=== PATIENT | female | born 1945 | race Caucasian/White ===

== ENCOUNTER → 2016-08-05 | Outpatient (CLI) | payer OTHER, MEDICARE ==
[~2016-08-05] MED LIST: ATOR-54 PO; CALC1TAB10 PO; COQ10100 PO; FISHOIL PO; LISI20TA3 PO; LISI20TA55 PO; MAGN1CAP2 PO; MULT-506 PO; NORT50CA PO; POLY335019 PO; POTA99TA PO; PRLSR20 PO; TRAZ100T29 PO
== END | disposition home or self-care (01) ==
LOC: C.LAB 10:55
PROVIDERS: ATTEND Internal Medicine Geriatric Medicine
DX: Z11.59 Encounter for screening for other viral diseases (principal)

== ENCOUNTER → 2017-02-08 | Outpatient (CLI) | payer OTHER, MEDICARE ==
[2017-02-08 12:40] LABS: BASO % 0.2 %; BASO ABS # 0.03 K/uL (0-0.2); COMPLETE YES; EOS % 4.3 %; HEMATOCRIT 41.6 % (37-47); IG% 0.2 %; LYMPH % 8.5 %; LYMPH ABS # 1.08 K/uL (1.2-3.4); MEAN CELL VOLUME 89.5 fL (80-100); MEAN CORPUSCULAR HEMOGLOBIN 31.4 pg (25-34); MEAN CORPUSCULAR HGB CONC 35.1 g/dl (32-36); MEAN PLATELET VOLUME 10.5 fL (7.4-10.4); MONO % 5.1 %; NEUT % 81.7 %; PLATELET COUNT 308 K/uL (130-400); RED BLOOD COUNT 4.65 M/uL (4.2-5.4); WHITE BLOOD COUNT 12.67 K/uL (4.8-10.8)
[2017-02-08 13:06] LABS: ALB/GLOB RATIO 1.1 (0.9-2); ALKALINE PHOSPHATASE 120 U/L (45-117); ALT/SGPT 47 U/L (12-78); AST/SGOT 25 U/L (15-37); BLOOD UREA NITROGEN 15 mg/dl (7-18); BUN/CREATININE RATIO 19.7 (10-20); CALCIUM 9.1 mg/dl (8.5-10.1); CARBON DIOXIDE 27 mmol/L (21-32); CHLORIDE 102 mmol/L (98-107); CREATININE 0.75 mg/dl (0.60-1.20); GLUCOSE 104 mg/dl (70-99); HDL CHOLESTEROL 46 mg/dl; POTASSIUM 3.8 mmol/L (3.5-5.1); SODIUM 137 mmol/L (136-145)
[2017-02-08 13:19] LABS: CHOLESTEROL 144 mg/dl (0-200); CHOLESTEROL/HDL RATIO 3.1; LDL CHOLESTEROL CALCULATED 76 mg/dl; TRIGLYCERIDES 108 mg/dl (0-150); VERY LOW DENSITY LIPOPROT CALC 22 mg/dl
--- NOTE | 2017-02-12 13:37 | CODING QUERY MEDICAL NECESSITY ---
SUPPORTING DIAGNOSIS NEEDED Dr. Rojas, A supporting diagnosis is required for the test/procedure performed on this patient in order for us to be reimbursed by the patient's insurance. Please provide a supporting diagnosis for the following test/procedure listed below next to the test name along with your signature. *If there is no additional diagnosis for this patient that would support the following test/procedure please document that below next to the test/procedure. Test(s)/Procedure(s) that require a supporting diagnosis: * ([id number]) VITAMIN D ASSAY DIAGNOSIS: DATE OF SERVICE: 02/08/17 Provider Signature: Date: Thank you Rosendo Quiroz [facility] Information Management Once completed, please kindly fax back to [phone] For questions please call [phone]
== END | disposition home or self-care (01) ==
LOC: C.LABBFT 08:02
PROVIDERS: ATTEND Internal Medicine Geriatric Medicine
DX: I10 Essential (primary) hypertension (principal); E78.5 Hyperlipidemia, unspecified; M19.90 Unspecified osteoarthritis, unspecified site; Z68.34 Body mass index [BMI] 34.0-34.9, adult

== ENCOUNTER → 2017-07-08 | Outpatient (CLI) | payer OTHER, MEDICARE ==
--- NOTE | 2017-07-08 13:46 | MAMMOGRAPHY REPORT ---
BILATERAL DIGITAL SCREENING MAMMOGRAM WITH CAD: 07/08/2017 CLINICAL HISTORY: Routine screening. Patient has no complaints. TECHNIQUE: Current study was also evaluated with a Computer Aided Detection (CAD) system. Bilateral CC and MLO views were obtained. COMPARISON: Comparison is made to exams dated: 07/03/2016 mammogram, 06/28/2015 mammogram, 4 mammogram, 06/26/2013 mammogram, 06/02/2011 mammogram, and 05/30/2010 mammogram - [facility]. BREAST COMPOSITION: There are scattered areas of fibroglandular density in both breasts. FINDINGS: No suspicious masses, calcifications, or areas of architectural distortion are noted in ei ther breast. There has been no significant interval change compared to prior exams. Scattered bilater al benign-appearing calcifications are not significantly changed. Left superior breast on the MLO vi ew is stable dating back to the 2007 exam. Benign intramammary lymph nodes in the right upper outer quadrant are stable. IMPRESSION: ACR BI-RADS CATEGORY 2: BENIGN There is no mammographic evidence of malignancy. A 1 year screening mammogram is recommended. The pa tient will receive written notification of the results. Approximately 10% of breast cancers are not detected with mammography. A negative mammographic report should not delay biopsy if a clinically suggestive mass is present. Claritza Molina M.D. /:07/08/2017 12:15:16 Warehouse Worker 2Nd Shift: Haydee Bonilla, [facility] letter sent: Normal 1/2 BI-RADS Code: ACR BI-RADS Category 2: Benign
== END | disposition home or self-care (01) ==
LOC: C.MAMM 10:44
PROVIDERS: ATTEND Internal Medicine Geriatric Medicine
DX: Z12.31 Encounter for screening mammogram for malignant neoplasm of breast (principal)

== ENCOUNTER → 2017-08-19 | Outpatient (CLI) | payer OTHER, MEDICARE ==
[2017-08-19 11:28] LABS: HEMOGLOBIN A1C 5.6 % (4.5-5.6)
[2017-08-19 14:35] LABS: ALT/SGPT 47 U/L (12-78); AST/SGOT 26 U/L (15-37); BLOOD UREA NITROGEN 17 mg/dl (7-18); CALCIUM 9.5 mg/dl (8.5-10.1); CARBON DIOXIDE 29 mmol/L (21-32); CREATININE 0.93 mg/dl (0.60-1.20); GLUCOSE 99 mg/dl (70-99); POTASSIUM 4.2 mmol/L (3.5-5.1); SODIUM 138 mmol/L (136-145)
[2017-08-19 14:38] LABS: ALKALINE PHOSPHATASE 118 U/L (45-117); TOTAL PROTEIN 7.7 gm/dl (6.4-8.2)
== END | disposition home or self-care (01) ==
LOC: C.LABBC 09:14
PROVIDERS: ATTEND Internal Medicine Geriatric Medicine
DX: I10 Essential (primary) hypertension (principal); E78.5 Hyperlipidemia, unspecified; M19.90 Unspecified osteoarthritis, unspecified site; M79.7 Fibromyalgia

== ENCOUNTER 2022-03-31 08:55 | Inpatient (IN) ==
[2022-03-31 09:12] LABS: Basophils # (auto) 0.06 K/uL (0-0.2); Basophils % (auto) 0.6 %; Eosinophils # (auto) 0.28 K/uL (0-0.50); Eosinophils % (auto) 2.7 %; Hematocrit (blood only) 43.1 % (34.1-44.9); Hemoglobin 14.7 g/dl (12.0-16.0); Immature Granulocytes # (auto) 0.03 K/uL (0.00-0.02); Immature Granulocytes % (auto) 0.3 %; Lymphocytes # (auto) 4.19 K/uL (1.2-3.4); Mean Corpuscular Hemoglobin 30.1 pg (25.0-34.0); Mean Corpuscular Hgb Conc 34.1 g/dL (32.0-36.0); Mean Corpuscular Volume 88.1 fL (80.0-100.0); Mean Platelet Volume 9.9 fL (9.4-12.3); Monocytes # (auto) 0.66 K/uL (0.24-0.82); Monocytes % (auto) 6.5 %; Neutrophils % (auto) 48.9 %; Platelet Count 366 K/uL (130-400); RDW Coefficient of Variation 13.3 % (11.5-14.5); RDW Standard Deviation 43.3 fL (36.4-46.3); Red Blood Count 4.89 M/uL (3.93-5.22); White Blood Count 10.22 K/ul (4.8-10.8)
--- NOTE | 2022-03-31 09:34 | Emergency Department Note ---
History of Present Illness General Chief complaint: Cardiac Assessment Time Seen by Provider: 03/31/22 09:03 Source: patient Mode of arrival: ambulatory Limitations: no limitations History of Present Illness Provider complaint: chest pain Onset (ago): week(s) 3 Location: chest Maximum Pain Intensity: 2 Treatments prior to arrival: none This is a 76-year-old female presents emergency department complaining of chest pain over the last 3 weeks. She states pain is intermittent, central, occasionally radiating into the neck. She states she has accompanying shortness of breath and numbness in her arms when this occurs. She denies any history of heart or lung problems. Denies any recent illness or fevers. No recent change in activity and no injuries. She cannot pinpoint a trigger or pattern to when these episodes occur. She states when they happen she will sit down and they will typically pass. She states slowly the episodes are lasting longer. She states both her parents required triple bypass on their 50s however that was attributed to diet. She states she has been on a statin for high cholesterol s robert she was 42 years old. Patient otherwise has a history of chronic neck pain due to prior surgery. Home Medications Medication Instructions Recorded Confirmed Type multivitamin 1 tab PO QAM ##0 06/04/09 03/31/22 History omeprazole 20 mg capsule,delayed 20 mg PO QAM ##0 06/04/09 03/31/22 History release polyethylene glycol 3350 17 1 dose PO QAM ##0 06/22/14 03/31/22 History gram/dose oral powder (Miralax) nortriptyline 50 mg capsule 50 mg PO HS #0 caps 11/19/15 03/31/22 History atorvastatin 20 mg tablet 20 mg PO QPM 03/15/18 03/31/22 History calcium carbonate 500 mg-vitamin 1 tab PO QAM 03/15/18 03/31/22 History D3 5 mcg (200 unit) tablet (Calcium 500 + D) coenzyme Q10 100 mg capsule 200 mg PO QAM 03/15/18 03/31/22 History (CoQ-10) lisinopril 20 mg tablet 20 mg PO QAM 03/15/18 03/31/22 History lisinopril 20 1 tab PO QAM 03/15/18 03/31/22 History mg-hydrochlorothiazide 25 mg tablet magnesium oxide 400 mg PO QAM 03/15/18 03/31/22 History omega 5-xfr-ecq-fish oil 1,000 mg 1 dose PO QAM 03/15/18 03/31/22 History (120 mg-180 mg) capsule (Fish Oil) tramadol 50 mg tablet 50 mg PO Q6H PRN pain #6 tabs 03/24/18 03/31/22 Rx cyclobenzaprine 10 mg tablet 10 mg PO HS 03/31/22 03/31/22 History Allergies Allergy/AdvReac Type Severity Reaction Status Date / Time oxycodone Allergy Intermediate Percocet,OX Verified 12/28/19 06:22 YCONTIN-HIV ES,RASH hydrocodone Allergy Unknown hives Verified 12/28/19 06:22 Iodinated Contrast Media Allergy Unknown HIVES, RASH Verified 12/28/19 06:22 nitrofurantoin Allergy Rash Verified 12/28/19 06:22 [From Macrobid] adhesive AdvReac Intermediate HIVES, Verified 12/28/19 06:22 BLISTERS Past Med/Surg History Medical History Chronic back pain Degenerative disc disease GERD (gastroesophageal reflux disease) Hyperlipidemia Hypertension Osteoarthritis Surgical History Fusion of spine 1996 L3-4 Fusion of spine FUSION OF C 5,6,7> ROM IS WNL PER PATIENT History of bilateral tubal ligation History of cataract surgery RIGHT History of colonoscopy History of hysterectomy GUTIERREZ W/ BSO History of repair of rotator cuff BILATERAL History of tonsillectomy History of total knee replacement BILATERAL Family History Mother Family history of diabetes mellitus Other No family history of adverse response to anesthesia Social History Smoking Status: Never smoker Second Hand Exposure: No; Hx Alcohol Use: No Hx Substance Use: No Preferred Language: Faroese Communication Ability: Effective 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 Beliefs That Will Affect Care: None Current Living Situation: Spouse Feels Safe at Home: Yes Assistive Devices: Cane, Denture - Upper and Glasses Review of Systems A total of 10 systems reviewed and were otherwise negative All systems reviewed & are unremarkable except as noted in HPI & below Physical Exam Vital Signs Vital Signs - 24 hr 03/31/22 09:02 03/31/22 09:36 03/31/22 09:06 Temperature 36.8 C Temperature Source Oral Pulse Rate 100 H Pulse Rate [Finger] 94 H Pulse Rate from SpO2 Sensor Pulse Rhythm Regular Pulse Strength Normal Respiratory Rate 22 20 Respiratory Effort / Characteristics Non-Labored Respiratory Depth Normal Respiratory Pattern Regular Blood Pressure 171/93 H 171/93 H Blood Pressure [Right Arm] 144/92 H Blood Pressure Mean 119 119 Blood Pressure Mean [Right Arm] 109 Blood Pressure Position Lying Pulse Oximetry 98 99 Oxygen Delivery Method Room Air Room Air Sepsis Recent Fever Within 48 Hours No Sepsis New/Unexplained Change in Mental Status No Sepsis Action Taken by Nursing No Action Required 03/31/22 09:15 03/31/22 09:30 03/31/22 10:27 Temperature Temperature Source Pulse Rate 101 H 97 H 93 H Pulse Rate [Finger] Pulse Rate from SpO2 Sensor 91 H 99 H 92 H Pulse Rhythm Pulse Strength Respiratory Rate 25 H 26 H 25 H Respiratory Effort / Characteristics Respiratory Depth Respiratory Pattern Blood Pressure 158/91 H 144/92 H 153/98 H Blood Pressure [Right Arm] Blood Pressure Mean 113 109 116 Blood Pressure Mean [Right Arm] Blood Pressure Position Pulse Oximetry 99 100 96 Oxygen Delivery Method Room Air Room Air Room Air Sepsis Recent Fever Within 48 Hours Sepsis New/Unexplained Change in Mental Status Sepsis Action Taken by Nursing 03/31/22 10:30 03/31/22 10:45 03/31/22 11:38 Temperature Temperature Source Pulse Rate 94 H 95 H 95 H Pulse Rate [Finger] Pulse Rate from SpO2 Sensor 91 H 95 H 82 Pulse Rhythm Pulse Strength Respiratory Rate 25 H 21 27 H Respiratory Effort / Characteristics Respiratory Depth Respiratory Pattern Blood Pressure 164/95 H 141/104 H 166/92 H Blood Pressure [Right Arm] Blood Pressure Mean 118 116 116 Blood Pressure Mean [Right Arm] Blood Pressure Position Pulse Oximetry 98 97 93 Oxygen Delivery Method Room Air Room Air Room Air Sepsis Recent Fever Within 48 Hours Sepsis New/Unexplained Change in Mental Status Sepsis Action Taken by Nursing 03/31/22 12:00 03/31/22 12:15 03/31/22 12:30 Temperature Temperature Source Pulse Rate 97 H 94 H 96 H Pulse Rate [Finger] Pulse Rate from SpO2 Sensor 88 96 H 98 H Pulse Rhythm Pulse Strength Respiratory Rate 23 24 19 Respiratory Effort / Characteristics Respiratory Depth Respiratory Pattern Blood Pressure 159/94 H 162/92 H 149/114 H Blood Pressure [Right Arm] Blood Pressure Mean 115 115 125 Blood Pressure Mean [Right Arm] Blood Pressure Position Pulse Oximetry 99 98 99 Oxygen Delivery Method Room Air Room Air Room Air Sepsis Recent Fever Within 48 Hours Sepsis New/Unexplained Change in Mental Status Sepsis Action Taken by Nursing 03/31/22 13:00 Temperature Temperature Source Pulse Rate 98 H Pulse Rate [Finger] Pulse Rate from SpO2 Sensor 99 H Pulse Rhythm Pulse Strength Respiratory Rate 19 Respiratory Effort / Characteristics Respiratory Depth Respiratory Pattern Blood Pressure 163/117 H Blood Pressure [Right Arm] Blood Pressure Mean 132 Blood Pressure Mean [Right Arm] Blood Pressure Position Pulse Oximetry 94 Oxygen Delivery Method Room Air Sepsis Recent Fever Within 48 Hours Sepsis New/Unexplained Change in Mental Status Sepsis Action Taken by Nursing GENERAL: alert, well appearing, well nourished, no distress, non-toxic EYE EXAM: normal conjunctiva, PERRL and EOM's grossly intact OROPHARYNX: no exudate, no erythema, lips, buccal mucosa, and tongue normal and mucous membranes are moist NECK: supple, no nuchal rigidity, no adenopathy, non-tender LUNGS: Clear to auscultation. Normal chest wall mechanics, no w/r/r HEART: no murmurs, S1 normal and S2 normal, no reproducible chest wall tenderness with palpation ABDOMEN: abdomen soft, non-tender, normo-active bowel sounds, no masses, no rebound or guarding. BACK: Back is symmetrical on inspection and there is no deformity, no midline tenderness, no CVA tenderness. SKIN: no rashes and no bruising UPPER EXTREMITIES: upper extremities are grossly normal. FROM, nml pulses b/l. LOWER EXTREMITIES: No pitting edema. FROM, nml pulses b/l. NEURO EXAM: Normal sensorium, cranial nerves II-XII grossly intact, normal speech, no gross weakness of arms, no gross weakness of legs. Gross sensation intact. Course Administered Medications Atorvastatin Calcium (Atorvastatin 40 Mg Tab) 40 mg PO QAM [facility] Stop: 04/30/22 16:14 Last Admin: 03/31/22 17:16 Dose: 40 mg Documented By: WRS Sodium Chloride (Nss 1000ml) 1,000 mls @ 75 mls/hr IV .[id number] [facility] Stop: 04/30/22 15:44 Last Admin: 03/31/22 16:31 Dose: 75 mls/hr Documented By: ALEX Isosorbide Mononitrate (Isosorbide [place] Extended Rel 30 Mg Tabcr) 30 mg PO QAM [facility] Stop: 04/30/22 16:14 Last Admin: 03/31/22 17:16 Dose: 30 mg Documented By: ALEX Discontinued Medications Adenosine (Adenosine Iv Soln 3 Mg/Ml 20 Ml Vial) Confirm Administered Dose 120 mg IV .STK-MED ONE Stop: 03/31/22 14:58 Last Admin: 03/31/22 15:28 Dose: 120 mg Documented By: RITA Diphenhydramine HCl (Diphenhydramine 50 Mg/Ml Vial) 25 mg IV NOW STA Stop: 03/31/22 11:26 Last Admin: 03/31/22 11:36 Dose: 25 mg Documented By: LUANN Diphenhydramine HCl (Diphenhydramine 50 Mg/Ml Vial) Confirm Administered Dose 50 mg .ROUTE .STK-MED ONE Stop: 03/31/22 14:45 Last Admin: 03/31/22 15:28 Dose: 25 mg Documented By: RITA Famotidine (Famotidine 20mg/5ml Iv Push) Confirm Administered Dose 20 mg IV .STK-MED ONE Stop: 03/31/22 14:45 Last Admin: 03/31/22 15:28 Dose: 20 mg Documented By: RITA Fentanyl Citrate (Fentanyl Citrate 100 Mcg/2 Ml Vial) Confirm Administered Dose 100 mcg .ROUTE .STK-MED ONE Stop: 03/31/22 14:19 Last Increment: 03/31/22 15:26 Dose: 50 mcg Documented By: RITA Heparin Sodium (Porcine) (Heparin (Porcine) 1000 Unit/Ml 10 Ml ([employer] Use Only)) Confirm Administered Dose 10,000 units .ROUTE .STK-MED ONE Stop: 03/31/22 14:19 Last Admin: 03/31/22 15:27 Dose: 6,000 units Documented By: [facility] Heparin Sodium/Sodium Chloride (Heparin In Nss Infusion 1000 Unit/500 Ml (2 U/Ml) Bag) Confirm Administered Dose 3,000 units IV .STK-MED ONE Stop: 03/31/22 14:19 Last Admin: 03/31/22 15:27 Dose: 3,000 units Documented By: RITA Ioversol (Optiray 300 500ml) 120 ml IV ONCE ONE Stop: 03/31/22 12:16 Last Admin: 03/31/22 11:52 Dose: 120 ml Documented By: DAO Methylprednisolone (Methylprednisolone 40 Mg/Ml Vial) 40 mg IV NOW STA Stop: 03/31/22 11:26 Last Admin: 03/31/22 11:36 Dose: 40 mg Documented By: NH Methylprednisolone (Methylprednisolone 125 Mg/2 Ml Vial) Confirm Administered Dose 125 mg .ROUTE .STK-MED ONE Stop: 03/31/22 14:45 Last Admin: 03/31/22 15:28 Dose: 80 mg Documented By: [facility] Midazolam HCl (Midazolam Hcl 1 Mg/Ml 2ml Vial) Confirm Administered Dose 2 mg .ROUTE .STK-MED ONE Stop: 03/31/22 14:19 Last Increment: 03/31/22 15:27 Dose: 1 mg Documented By: RITA Nicardipine HCl (Nicardipine Hcl Inj 2.5 Mg/Ml 10 Ml Amp) Confirm Administered Dose 25 mg .ROUTE .STK-MED ONE Stop: 03/31/22 14:19 Last Admin: 03/31/22 15:27 Dose: 25 mg Documented By: RITA Nitroglycerin (Nitroglycerin Sl 0.4 Mg/Tab Tab) 0.4 mg SL NOW STA Stop: 03/31/22 13:06 Last Admin: 03/31/22 13:25 Dose: 0.4 mg Documented By: NH Nitroglycerin (Nitroglycerin Sl 0.4 Mg/Tab Tab) Confirm Administered Dose 0.4 mg .ROUTE .STK-MED ONE Stop: 03/31/22 16:40 Last Admin: 03/31/22 16:44 Dose: 0.4 mg Documented By: ALEX Nitroglycerin/Dextrose (Nitroglycerin/D5w 100mcg/Ml 20ml Syr) Confirm Administered Dose 2,000 mcg .ROUTE .STK-MED ONE Stop: 03/31/22 14:19 Last Admin: 03/31/22 15:27 Dose: 2,000 mcg Documented By: RITA Medical Decision Making Differential Diagnosis Differential diagnoses includes but is not limited to acute coronary syndrome, myocardial infarction, pericarditis, pulmonary embolus, aortic dissection, pneumonia, pneumothorax, musculoskeletal, shingles, esophageal. Medical Records Attestation: I reviewed the patient's medical records. Home Medications Current Medication List: was personally reviewed by me Laboratory Data Attestation: I reviewed the patient's lab results. Result diagrams: 03/31/22 08:40 03/31/22 08:40 Lab Results 03/31/22 03/31/22 03/31/22 Range/Units 08:40 08:40 09:59 WBC 10.22 (4.8-10.8) K/ul RBC 4.89 (3.93-5.22) M/uL Hgb 14.7 (12.0-16.0) g/dl Hct 43.1 (34.1-44.9) % MCV 88.1 (80.0-100.0) fL MCH 30.1 (25.0-34.0) pg MCHC 34.1 (32.0-36.0) g/dL RDW Std Deviation 43.3 (36.4-46.3) fL RDW Coeff of [place]ador 13.3 (11.5-14.5) % Plt Count 366 (130-400) K/uL MPV 9.9 (9.4-12.3) fL Immature Gran % (Auto) 0.3 % Neut % (Auto) 48.9 % Lymph % (Auto) 41.0 % [place] % (Auto) 6.5 % Eos % (Auto) 2.7 % Baso % (Auto) 0.6 % Neut # (Auto) 5.00 (1.4-6.5) K/uL Lymph # (Auto) 4.19 H (1.2-3.4) K/uL [place] # (Auto) 0.66 (0.24-0.82) K/uL Eos # (Auto) 0.28 (0-0.50) K/uL Baso # (Auto) 0.06 (0-0.2) K/uL Immature Gran # (Auto) 0.03 H (0.00-0.02) K/uL D-Dimer 680 H* (0-500) ug/L FEU Sodium 138 (136-145) mmol/L Potassium 3.7 (3.5-5.1) mmol/L Chloride 102 (98-107) mmol/L Carbon Dioxide 29 (21-32) mmol/L Anion Gap 7 (3-11) BUN 14 (6-23) mg/dl Creatinine 0.67 (0.6-1.2) mg/dl Est Cr Clr Drug Dosing 77.1 ml/min Est GFR ( Amer) 100.4 ml/min Est GFR (Non-Af Amer) 86.6 ml/min BUN/Creatinine Ratio 20.9 H (10-20) Glucose 96 (70-99(Fasting)) mg/dl Calcium 10.0 (8.5-10.1) mg/dl Total Bilirubin 0.4 (0.2-1.0) mg/dl AST 38 (13-39) U/L ALT 61 H (7-52) U/L Alkaline Phosphatase 175 H (34-104) U/L Troponin I High Sens 34.9 H (0-14) pg/ml Total Protein 7.5 (6.0-8.3) gm/dl Albumin 4.4 (3.4-5.0) gm/dl Globulin 3.1 (2.5-4.0) gm/dl Albumin/Globulin Ratio 1.4 (0.9-2) Lipase 19 (11-82) U/L SARS-CoV-2, RNA, NAAT (NEGATIVE) 03/31/22 Range/Units 12:47 WBC (4.8-10.8) K/ul RBC (3.93-5.22) M/uL Hgb (12.0-16.0) g/dl Hct (34.1-44.9) % MCV (80.0-100.0) fL MCH (25.0-34.0) pg MCHC (32.0-36.0) g/dL RDW Std Deviation (36.4-46.3) fL RDW Coeff of [place]ador (11.5-14.5) % Plt Count (130-400) K/uL MPV (9.4-12.3) fL Immature Gran % (Auto) % Neut % (Auto) % Lymph % (Auto) % [place] % (Auto) % Eos % (Auto) % Baso % (Auto) % Neut # (Auto) (1.4-6.5) K/uL Lymph # (Auto) (1.2-3.4) K/uL [place] # (Auto) (0.24-0.82) K/uL Eos # (Auto) (0-0.50) K/uL Baso # (Auto) (0-0.2) K/uL Immature Gran # (Auto) (0.00-0.02) K/uL D-Dimer (0-500) ug/L FEU Sodium (136-145) mmol/L Potassium (3.5-5.1) mmol/L Chloride (98-107) mmol/L Carbon Dioxide (21-32) mmol/L Anion Gap (3-11) BUN (6-23) mg/dl Creatinine (0.6-1.2) mg/dl Est Cr Clr Drug Dosing ml/min Est GFR ( Amer) ml/min Est GFR (Non-Af Amer) ml/min BUN/Creatinine Ratio (10-20) Glucose (70-99(Fasting)) mg/dl Calcium (8.5-10.1) mg/dl Total Bilirubin (0.2-1.0) mg/dl AST (13-39) U/L ALT (7-52) U/L Alkaline Phosphatase (34-104) U/L Troponin I High Sens (0-14) pg/ml Total Protein (6.0-8.3) gm/dl Albumin (3.4-5.0) gm/dl Globulin (2.5-4.0) gm/dl Albumin/Globulin Ratio (0.9-2) Lipase (11-82) U/L SARS-CoV-2, RNA, NAAT NEGATIVE (NEGATIVE) Imaging Data Radiologist's Impression: Chest X-Ray 03/31/22 08:55 XR chest 1V portable HISTORY: 76 years-old Female Chest Pain acute chest pain COMPARISON: None TECHNIQUE: Portable AP view of the chest FINDINGS: Cardiomediastinal and hilar silhouettes are within normal limits. No pneumothorax, pleural effusion, airspace consolidation or overt pulmonary edema. Degenerative changes of the shoulders and spine. Lower cervical spinal fusion hardware. A surgical anchor of the left humeral head. IMPRESSION: No acute process of the chest. ACT 112: Negative or not required by law. The above report was generated using voice recognition software. It may contain grammatical, syntax or spelling errors. Electronically signed by: Deny Cee M.D. 03/31/2022 9:46 AM Chest CTA 03/31/22 11:06 CT ANGIOGRAM OF THE CHEST CLINICAL HISTORY: Atypical chest pain. COMPARISON STUDY: Chest x-ray dated 03/31/2022. TECHNIQUE: Following the IV administration of 120 cc of Optiray 300, CT angiogram of the chest was performed from the upper abdomen to the thoracic inlet utilizing the pulmonary embolus protocol. Images are reviewed in the axial, sagittal, and coronal planes. 3-D MIPS images are created and assessed. IV contrast was administered without complication. A dose lowering technique was utilized adhering to the principles of ALARA. CT DOSE: 537.26 mGycm FINDINGS: Thyroid: Imaged portions of the thyroid gland are normal in size and atten uation. Thoracic aorta: The thoracic aorta is normal in caliber and demonstrates standard 3-vessel arch anatomy. No dissection is seen. Pulmonary vasculature: The pulmonary trunk is normal in caliber. There are no filling defects identified in main, lobar, or segmental pulmonary branches to suggest pulmonary embolus. Heart: The heart is normal in size and without pericardial effusion. There are coronary artery calcifications. Lungs and pleural spaces: There are scattered calcified granulomas. No airspace consolidation or pleural effusion is identified. The trachea and central airways are clear. Mediastinum: There is no mediastinal lymphadenopathy. Puja: Clear. Axillae: There are shotty axillary lymph nodes. Upper abdomen: Partially visualized upper abdominal viscera is within normal limits. Skeletal structures: The skeletal structures are osteopenic. Degenerative change is noted in the shoulders and thoracic spine. Fusion hardware is noted in the lower cervical spine. Postoperative change is partially seen in the left shoulder. No lytic or blastic bony lesions are seen. IMPRESSION: 1. There is no evidence of pulmonary embolus in the main, lobar, or segmental pulmonary arteries. 2. There is no airspace consolidation or pleural effusion. 3. Additional findings as above. ACT 112: Negative or not required by law. Electronically signed by: Bert Israel M.D. 03/31/2022 12:12 PM ECG Data Attestation: I personally reviewed and interpreted this ECG as follows: Indication: + chest pain Rate (beats per minute): 96 Rhythm: + normal sinus ECG Intervals/blocks: + Normal QRS and + Normal QT ECG [place]: + Normal ECG ST segments: + Nonspecific ST abnormalities MDM Narrative An order was placed for continuous cardiac monitoring. The monitor shows a rate of _92__ with _normal sinus__ rhythm. HEART score 4 THis is a76 yo female who presents due to concern for persistent and worsening intermittent chest pain. No prior cardiac hx. Labs sent and CXR performed. No acute changes on EKG. Troponin mildly elevated. DImer mildly elevated. CTA chest negative for other acute pathology. Due to worsening symptoms over 3 weeks, discussed all results with her. She verbalized understanding was in agreement for additional inpatient evaluation and management. Case discussed with hospitalist team. Impression & Plan Chest pain, Elevated troponin Discharge Plan Visit Data Chief Complaint: Cardiac Assessment ED Provider: Humera Merino Discharge Problem: Chest pain, Elevated troponin Patient Disposition: Admitted As Inpatient Discharge Instructions Interventions: ED AMA/LWBS Discharge Assessment Last Done: 03/31/22 14:43
[2022-03-31 09:39] LABS: Troponin I High Sensitivity 34.9 pg/ml (0-14)
[2022-03-31 09:46] LABS: Albumin Globulin Ratio 1.4 (0.9-2); Albumin Level 4.4 gm/dl (3.4-5.0); BUN Creatinine Ratio 20.9 (10-20); Bilirubin,Total 0.4 mg/dl (0.2-1.0); Creatinine Clr Calc Pharmacy 77.1 ml/min; Est GFR (African American) 100.4 ml/min; Est GFR (Non-African American) 86.6 ml/min; Globulin 3.1 gm/dl (2.5-4.0); Potassium 3.7 mmol/L (3.5-5.1); Total Protein 7.5 gm/dl (6.0-8.3)
--- NOTE | 2022-03-31 09:48 | XRay Report ---
XR chest 1V portable HISTORY: 76 years-old Female Chest Pain acute chest pain COMPARISON: None TECHNIQUE: Portable AP view of the chest FINDINGS: Cardiomediastinal and hilar silhouettes are within normal limits. No pneumothorax, pleural effusion, airspace consolidation or overt pulmonary edema. Degenerative changes of the shoulders and spine. Low er cervical spinal fusion hardware. A surgical anchor of the left humeral head. IMPRESSION: No acute process of the chest. ACT 112: Negative or not required by law. The above report was generated using voice recognition software. It may contain grammatical, syntax o r spelling errors. Electronically signed by: Deny Cee M.D. 03/31/2022 9:46 AM
[2022-03-31 10:56] LABS: D Dimer 680 ug/L FEU (0-500)
[2022-03-31] MEDS ORDERED: diphenhydrAMINE 50 MG/ML VIAL IV STA (11:25)
--- NOTE | 2022-03-31 12:13 | CT Scan Report ---
CT ANGIOGRAM OF THE CHEST CLINICAL HISTORY: Atypical chest pain. COMPARISON STUDY: Chest x-ray dated 03/31/2022. TECHNIQUE: Following the IV administration of 120 cc of Optiray 300, CT angiogram of the chest was pe rformed from the upper abdomen to the thoracic inlet utilizing the pulmonary embolus protocol. Images are reviewed in the axial, sagittal, and coronal planes. 3-D MIPS images are created and assessed. I V contrast was administered without complication. A dose lowering technique was utilized adhering to the principles of ALARA. CT DOSE: 537.26 mGycm FINDINGS: Thyroid: Imaged portions of the thyroid gland are normal in size and attenuation. Thoracic aorta: The thoracic aorta is normal in caliber and demonstrates standard 3-vessel arch anato my. No dissection is seen. Pulmonary vasculature: The pulmonary trunk is normal in caliber. There are no filling defects identif ied in main, lobar, or segmental pulmonary branches to suggest pulmonary embolus. Heart: The heart is normal in size and without pericardial effusion. There are coronary artery calcif ications. Lungs and pleural spaces: There are scattered calcified granulomas. No airspace consolidation or pleu ral effusion is identified. The trachea and central airways are clear. Mediastinum: There is no mediastinal lymphadenopathy. Puja: Clear. Axillae: There are shotty axillary lymph nodes. Upper abdomen: Partially visualized upper abdominal viscera is within normal limits. Skeletal structures: The skeletal structures are osteopenic. Degenerative change is noted in the shou lders and thoracic spine. Fusion hardware is noted in the lower cervical spine. Postoperative change is partially seen in the left shoulder. No lytic or blastic bony lesions are seen. IMPRESSION: 1. There is no evidence of pulmonary embolus in the main, lobar, or segmental pulmonary arteries. 2. There is no airspace consolidation or pleural effusion. 3. Additional findings as above. ACT 112: Negative or not required by law. Electronically signed by: Bert Israel M.D. 03/31/2022 12:12 PM
[2022-03-31] MEDS ORDERED: OPTIRAY 300 500mL IV ONE (12:15)
--- NOTE | 2022-03-31 12:38 | History & Physical Report ---
Date of Service March 31, 2022 Assessment & Plan (1) Chest pain: Plan: -Admit to PCU -Patient is currently afebrile, hemodynamically stable, and stable on room air -Symptoms and workup are concerning for unstable angina, cardiology consult placed and spoke to Dr. Jade, appreciate their help >Patient will liekly need to be taken to the cardiac cath lab manager, touching base with interventionalist now -Keep NPO, will repeat high sensitivity troponin now then q6h -Will wait to hear back from Cardiology before starting heparin -Will give a dose of SL nitro now as she is still having chest discomfort and is hypertensive (2) HTN (hypertension): Plan: -Continue PRODUCTION TEAM MANAGER lisinopril, lisinopril-HCTZ for now (3) Elevated LFTs: Plan: -Patient states that she was recently diagnosed with cholangitis at [place]? >Stated she had an outpatient ERCP in October of this year and received biliary stent but denies them finding stones or placing her on abx >Alk phos noted to be 175 with ALT of 61, no abdominal pain, nausea, vomiting, or fevers. >Will request info from [facility] residents to figure out what exactly she had done in October (4) Hyperlipidemia: Plan: -Continue PRODUCTION TEAM MANAGER statin, may need to increase dose prior to discharge (5) GERD (gastroesophageal reflux disease): Plan: -PRODUCTION TEAM MANAGER omeprazole Plan The patient was seen with and discussed with Dr. Marks at the time of admission History of Present Illness Chief Complaint: Chest pain Primary Care Provider: Ivana Sandoval MD Dharmesh is a 76yo F hx HTN, HLD, no hx CAD who presents with 3 weeks of increased chest pressure and SoB with exertion and more recently with episodes at rest. Pain is in her chest and radiates into her left neck. She does have associated shortness of breath with episodes. No diaphoresis. Episodes have been happening when walking to the bathroom, and radiate up to her neck. Currently 2-3/10 in her central chest. +SoB with episodes. No diaphoresis. Dnies hx of past cardiac disease including arrythmia, stents. She has never seen a metal furnace operator. Pain is random, in the center of chest. Not exercise associated, can go up a flight of stairs without inciting it. Pain does wake her up at night from sleep, Pain las ts ~15-20minutes per episode. Rest improves. Having episodes ~2-3 times a day, up from 1 every other day. 10/10 pain this morning. got 4 baby aspirin --> 2/10. Rides stationary bike at home without pain.HTN, HLD, cholangitis no abx. [place] [facility] [place]. Liver enzymes elevated at that time. Had a stent placed during ERCP, no stones noted, did not recommend antibiotics, recommended serial followup in 6 months. Had no pain, enzymes were noted FHx: Both parents with triple bipass in 50s, father with 3 brothers all in 50s from MIs. No recent fevers, chills, cough, URI, abdominal pain, dysuria, diarrhea/constipation, bleeding, melena, BRBPR In the ED the patient was noted to be afebrile, hemodynamically stable, and stable on room air. Labs were remarkable for a D-Dimer of 680, alk phos of 175, and high sensitivity troponin of 34.9. Chest xray was negative for acute changes, CTA of the chest was negative for PE, air space consolidation, and pleural effusion but did show coronary artery calcification. EKG showed incomplete RBBB, sinus rhythm with PACS, and borderline criteria for anterior and anterolateral infarcts. Allergies Allergy/AdvReac Type Severity Reaction Status Date / Time oxycodone Allergy Intermediate Percocet,OX Verified 12/28/19 06:22 YCONTIN-HIV ES,RASH hydrocodone Allergy Unknown hives Verified 12/28/19 06:22 Iodinated Contrast Media Allergy Unknown HIVES, RASH Verified 12/28/19 06:22 nitrofurantoin Allergy Rash Verified 12/28/19 06:22 [From Macrobid] adhesive AdvReac Intermediate HIVES, Verified 12/28/19 06:22 BLISTERS Home Medications Medication Instructions Recorded Confirmed Type multivitamin 1 tab PO QAM ##0 06/04/09 12/28/19 History omeprazole 20 mg capsule,delayed 20 mg PO QAM ##0 06/04/09 12/28/19 History release trazodone 100 mg tablet 100 mg PO HS PRN Sleep #0 tabs 07/21/12 12/28/19 History polyethylene glycol 3350 17 1 dose PO QAM ##0 12/12/14 06/18/20 History gram/dose oral powder (Miralax) nortriptyline 50 mg capsule 50 mg PO HS #0 caps 11/19/15 12/28/19 History atorvastatin 20 mg tablet 20 mg PO QPM 03/15/18 12/28/19 History calcium carbonate 500 mg-vitamin 1 tab PO QAM 03/15/18 12/28/19 History D3 5 mcg (200 unit) tablet (Calcium 500 + D) coenzyme Q10 100 mg capsule 200 mg PO QAM 03/15/18 12/28/19 History (CoQ-10) lisinopril 20 mg tablet 20 mg PO QAM 03/15/18 12/28/19 History lisinopril 20 1 tab PO QAM 03/15/18 12/28/19 History mg-hydrochlorothiazide 25 mg tablet magnesium oxide 400 mg PO QAM 03/15/18 12/28/19 History omega 1-lmt-vlb-fish oil 1,000 mg 1 dose PO QAM 03/15/18 12/28/19 History (120 mg-180 mg) capsule (Fish Oil) tramadol 50 mg tablet 50 mg PO Q6H PRN pain #6 tabs 03/24/18 12/28/19 Rx tramadol 50 mg tablet 50 - 100 mg PO Q4H PRN pain #15 12/28/19 Rx tabs Past Med/Surg History Medical History (Updated 03/31/22 @ 13:18 by Tung Muñiz PA-C) Chronic back pain Degenerative disc disease GERD (gastroesophageal reflux disease) Hyperlipidemia Hypertension Osteoarthritis Surgical History Fusion of spine 1995 L3-4 Fusion of spine FUSION OF C 5,6,7> ROM IS WNL PER PATIENT History of bilateral tubal ligation History of cataract surgery RIGHT History of colonoscopy History of hysterectomy GUTIERREZ W/ BSO History of repair of rotator cuff BILATERAL History of tonsillectomy History of total knee replacement BILATERAL Family History Mother Family history of diabetes mellitus Other No family history of adverse response to anesthesia Social History Smoking Status: Never smoker Second Hand Exposure: No; Hx Alcohol Use: No Hx Substance Use: No Preferred Language: Mozambican Communication Ability: Effective Paper Supervisor Required: No Beliefs That Will Affect Care: None Current Living Situation: Spouse Feels Safe at Home: Yes Assistive Devices: Denture - Upper and Glasses Review of Systems Review of Systems: Denies current fever, chills, headache, changes in vision, hearing, taste, and smell, cough, abdominal pain, nausea, vomiting, diarrhea, hematemesis, melena, dysuria, hematuria, and recent falls. All systems have been reviewed and are otherwise negative. Physical Exam Physical Exam: Physical Exam: General: In no acute distress, stated age, well-nourished, good hygiene HEENT: Normocephalic, atraumatic, no scleral icterus, pupils around round, symmetrical, and reactive to light, moist mucus membranes, trachea midline, no thyromegaly Chest/Pulm: No respiratory distress, symmetrical chest expansion, clear breath sounds throughout Cardiac: RRR, 2/6 systolic murmur noted Abdomen: Negative for ascites and bruising, normoactive bowel sounds, soft, non-tender to palpation throughout Musculoskeletal: Symmetrical and without signs of acute trauma, upper and lower extremities with full ROM, no atrophy, spasticity, or flaccidity Extremities: Radial, dorsalis pedis, and posterior tibial pulses are intact and symmetrical, no edema noted in the BL LE's Skin: Warm, dry, no rashes , lesions, or scars noted Neuro: Alert and oriented to person, place, month, year, and president, no focal defects, CN II-XII tested and intact, finger to nose test negative, no tremors noted Psych: No acute distress, calm and cooperative during the exam Results & Data Results & Data ([facility]) Vital Signs (Past 12 Hours) Vital Signs Temp Pulse Pulse Resp BP BP Pulse Ox 03/31/22 10:45 95 H 21 141/104 H 97 03/31/22 10:30 94 H 25 H 164/95 H 98 03/31/22 10:27 93 H 25 H 153/98 H 96 03/31/22 09:30 97 H 26 H 144/92 H 100 03/31/22 09:15 101 H 25 H 158/91 H 99 03/31/22 09:06 171/93 H 03/31/22 09:36 94 H 20 144/92 H 99 03/31/22 09:02 36.8 C 100 H 22 171/93 H 98 O2 Del Method 03/31/22 10:45 Room Air 03/31/22 10:30 Room Air 03/31/22 10:27 Room Air 03/31/22 09:30 Room Air 03/31/22 09:15 Room Air 03/31/22 09:06 03/31/22 09:36 Room Air 03/31/22 09:02 Room Air Laboratory Results Abnormal lab results 03/31/22 03/31/22 03/31/22 Range/Units 08:40 08:40 09:59 Lymph # (Auto) 4.19 H (1.2-3.4) K/uL Immature Gran # (Auto) 0.03 H (0.00-0.02) K/uL D-Dimer 680 H* (0-500) ug/L FEU BUN/Creatinine Ratio 20.9 H (10-20) ALT 61 H (7-52) U/L Alkaline Phosphatase 175 H (34-104) U/L Troponin I High Sens 34.9 H (0-14) pg/ml Diagnostic Findings Chest X-Ray 03/31/22 08:55 XR chest 1V portable HISTORY: 76 years-old Female Chest Pain acute chest pain COMPARISON: None TECHNIQUE: Portable AP view of the chest FINDINGS: Cardiomediastinal and hilar silhouettes are within normal limits. No pneumothorax, pleural effusion, airspace consolidation or overt pulmonary edema. Degenerative changes of the shoulders and spine. Lower cervical spinal fusion hardware. A surgical anchor of the left humeral head. IMPRESSION: No acute process of the chest. ACT 112: Negative or not required by law. The above report was generated using voice recognition software. It may contain grammatical, syntax or spelling errors. Electronically signed by: Deny Cee M.D. 03/31/2022 9:46 AM Chest CTA 03/31/22 11:06 CT ANGIOGRAM OF THE CHEST CLINICAL HISTORY: Atypical chest pain. COMPARISON STUDY: Chest x-ray dated 03/31/2022. TECHNIQUE: Following the IV administration of 120 cc of Optiray 300, CT angiogram of the chest was performed from the upper abdomen to the thoracic inlet utilizing the pulmonary embolus protocol. Images are reviewed in the axial, sagittal, and coronal planes. 3-D MIPS images are created and assessed. IV contrast was administered without complication. A dose lowering technique was utilized adhering to the principles of ALARA. CT DOSE: 537.26 mGycm FINDINGS: Thyroid: Imaged portions of the thyroid gland are normal in size and attenuation. Thoracic aorta: The thoracic aorta is normal in caliber and demonstrates standard 3-vessel arch anatomy. No dissection is seen. Pulmonary vasculature: The pulmonary trunk is normal in caliber. There are no filling defects identified in main, lobar, or segmental pulmonary branches to suggest pulmonary embolus. Heart: The heart is normal in size and without pericardial effusion. There are coronary artery calcifications. Lungs and pleural spaces: There are scattered calcified granulomas. No airspace consolidation or pleural effusion is identified. The trachea and central airways are clear. Mediastinum: There is no mediastinal lymphadenopathy. Puja: Clear. Axillae: There are shotty axillary lymph nodes. Upper abdomen: Partially visualized upper abdominal viscera is within normal limits. Skeletal structures: The skeletal structures are osteopenic. Degenerative change is noted in the shoulders and thoracic spine. Fusion hardware is noted in the lower cervical spine. Postoperative change is partially seen in the left shoulder. No lytic or blastic bony lesions are seen. IMPRESSION: 1. There is no evidence of pulmonary embolus in the main, lobar, or segmental pulmonary arteries. 2. There is no airspace consolidation or pleural effusion. 3. Additional findings as above. ACT 112: Negative or not required by law. Electronically signed by: Bert Israel M.D. 03/31/2022 12:12 PM ECG Additional Comments: Sinus rhythm with occasional Premature ventricular complexes Possible Left atrial enlargement Incomplete right bundle branch block Possible Anterolateral i nfarct , age undetermined Abnormal ECG When compared with ECG of 15-NOV-2015 10:43, Premature ventricular complexes are now Present Borderline criteria for Anterior infarct are now Present Borderline criteria for Anterolateral infarct are now Present Supervising Physician Co-Signing Physician Notes Patient seen and examined, chart reviewed, case discussed with Tung Muñiz PA-C and I agree with the assessment and plan as above except as otherwise noted Labs and images reviewed 76yo F hx HTN, HLD, no hx CAD who presents with 3 weeks of increased chest pressure and SoB with exertion and more recently with episodes at rest. Pain is in her chest and radiates into her left neck. She does have associated shortness of breath with episodes. No diaphoresis. Episodes have been happening when walking to the bathroom, and radiate up to her neck Currently 2-3/10 in her central chest +SoB with episodes. No diaphoresis Dnies hx of past cardiac disease including arrythmia, stents, [place] NEver seen a metal furnace operator Pain is random, in the center of chest. Not exercise associated, can go up a flight of stairs without inciting it. Pain does wake her up at night from sleep. Pain lasts ~15-20minutes per episode. Rest improves. Having episodes ~2-3 times a day, up from 1 every other day. 10/10 pain this morning. got 4 baby aspirin --> 2/10. Rides stationary bike at home without pain. HTN, HLD, cholangitis no abx. [place] [facility] [place]. Liver enzymes elevated at that time. Had a stent placed during ERCP, no stones noted, did not recommend antibiotics, recommended serial followup in 6 months. Had no pain, enzymes were noted FHx: Both parents with triple bipass in 50s, father with 3 brothers all in 50s from MIs. No recent fevers, chills, cough, URI, abdominal pain, dysuria, diarrhea/constipation, bleeding, melena, BRBPR Medical History: Reviewed Medications: Reviewed Surgical History: Reviewed Allergies: Reviewed Social History: NO tobacco product use. No alcohol use. Code Status: Surrogate DM Julius/Jabari #[phone]. [phone]. Full Code. In summary patient is a 76-year-old female with family history of multiple deaths due to MA early in life/50s, hyperlipidemia, no tobacco use, no diabetes who presents with episodes of chest pain lasting 20 to 30 minutes which are not incited by exercise but which have occurred at rest, are associated with shortness of breath, and improved with rest. Patient had 10/10 pain which improved to 2/10 with aspirin. Patient is able to go up stairs and ride an exercise bike at a decent pace without inciting her pain. Pain is nonreproducible on exam. Lungs are clear, no edema on exam. Patient has high- sensitivity troponin elevated to 34.9. EKG shows sinus rhythm with PVCs, RBBB, T wave inversions in V2/V3/V4/V5/V6 equivocal to slightly worsened compared to 03/16/[address] segment changes greater than 1 mm BSG 96 on admission. Creatinine is normal, slightly increased BUN/creatinine ratio. D- dimer was mildly elevated to 680, although age adjusted normal, CTPE was without acute findings. Methylprednisolone was given for history of contrast allergy as a pretreatment. Given strong family history, cardiac risk, some pain with walking, and nonreproducible pain with EKG findings as noted and borderline elevated troponin recommend consideration for catheterization. Cardiology consulted, agree with recommendations and management noted above. PG Care Time/CCT Total # of Minutes Spent Total Time Spent with Patient: Total time spent is greater than 50% in coordination of care (as documented) at patient's floor/unit and/or counseling patient: [place] [address] Initial Inpt Care Lvl 3 Patient Type Established History Comprehensive Exam Comprehensive Medical Decision Making High Complexity Diagnoses Chest pain R07.9 HTN (hypertension) I10 Elevated LFTs R79.89 Hyperlipidemia E78.5 GERD (gastroesophageal reflux disease) K21.9
[2022-03-31] MEDS ORDERED: NITROGLYCERIN SL 0.4 MG/TAB TAB SL STA (13:05)
--- NOTE | 2022-03-31 13:52 | Cardiology Consultation ---
Date of Consultation March 31, 2022 Assessment & Plan (1) Chest pain: (2) Hyperlipidemia: (3) Dye allergic reaction: (4) HTN (hypertension): Plan 1. Chest discomfort: The character of her discomfort as well as the mode of onset and duration are all very consistent with unstable angina. Her initially elevated troponin is also consistent with that. She does have poor R wave progression now which may be new compared to an old electrocardiogram (which I cannot see on her current record) suggesting there may have been a change. I think we need to perform cardiac catheterization and we will make those arrangements. 2. Hyperlipidemia: She has been on atorvastatin 20 mg daily for many years. If she has coronary disease we will need to increase the dose. 3. Dye reaction: She has a history of a dye allergy, however just received x- ray dye and therefore she should not be in danger of a dye reaction. Her kidney function is normal and although she will be receiving additional dye I believe the risk of kidney injury is justified and I discussed this with the family. 4. Hypertension: Most of her blood pressure for the last several years are elevated, will probably need to adjust her blood pressure medications by do not want to do that going into the catheterization. History of Present Illness Reason for Consultation: Chest pain, elevated troponin History of Present Illness This is a 76-year-old woman with a very strong family history of coronary artery disease as well as hypercholesterolemia (on atorvastatin 20 mg daily) who prese nts with chest discomfort. She describes chest discomfort for 3 weeks to a month, worsening recently, which is described as a substernal chest discomfort with radiation to her neck and into her jaw as well as bilateral arm numbness. Although she tells me that the episodes can occur at any time she describes them typically with getting up and walking someplace at which time she has to sit down and they resolve in 15 to 20 minutes. She was brought in this morning, however she is still having mild discomfort which she tells me was improved with the use of sublingual nitroglycerin. In the emergency room a D-dimer was elevated and she had a CT angiogram of the chest for which she received 120 cc of Optiray 300 (she has a history of dye allergies however did not have reaction to this dye) and there was no significant abnormality identified. On electrocardiography this morning she is in sinus rhythm with no significant acute abnormalities although she does have poor R wave progression and V2 is probably misplaced. She has 1 PVC and normal QT interval. The poor R wave progression appears to be new compared to 2016, possibly representing an interim event. Her initial high sensitive troponin is elevated at 34.9 with another 1 pending, drawn at 1322. Her kidney function is normal. Allergies Allergy/AdvReac Type Severity Reaction Status Date / Time oxycodone Allergy Intermediate Percocet,OX Verified 12/28/19 06:22 YCONTIN-HIV ES,RASH hydrocodone Allergy Unknown hives Verified 12/28/19 06:22 Iodinated Contrast Media Allergy Unknown HIVES, RASH Verified 12/28/19 06:22 nitrofurantoin Allergy Rash Verified 12/28/19 06:22 [From Macrobid] adhesive AdvReac Intermediate HIVES, Verified 12/28/19 06:22 BLISTERS Home Medications Medication Instructions Recorded Confirmed Type multivitamin 1 tab PO QAM ##0 06/04/09 12/28/19 History omeprazole 20 mg capsule,delayed 20 mg PO QAM ##0 06/04/09 12/28/19 History release trazodone 100 mg tablet 100 mg PO HS PRN Sleep #0 tabs 07/21/12 12/28/19 History polyethylene glycol 3350 17 1 dose PO QAM ##0 06/22/14 12/28/19 History gram/dose oral powder (Miralax) nortriptyline 50 mg capsule 50 mg PO HS #0 caps 11/19/15 12/28/19 History atorvastatin 20 mg tablet 20 mg PO QPM 03/15/18 12/28/19 History calcium carbonate 500 mg-vitamin 1 tab PO QAM 03/15/18 12/28/19 History D3 5 mcg (200 unit) tablet (Calcium 500 + D) coenzyme Q10 100 mg capsule 200 mg PO QAM 03/15/18 12/28/19 History (CoQ-10) lisinopril 20 mg tablet 20 mg PO QAM 03/15/18 12/28/19 History lisinopril 20 1 tab PO QAM 03/15/18 12/28/19 History mg-hydrochlorothiazide 25 mg tablet magnesium oxide 400 mg PO QAM 03/15/18 12/28/19 History omega 3-urt-odz-fish oil 1,000 mg 1 dose PO QAM 03/15/18 12/28/19 History (120 mg-180 mg) capsule (Fish Oil) tramadol 50 mg tablet 50 mg PO Q6H PRN pain #6 tabs 03/24/18 12/28/19 Rx tramadol 50 mg tablet 50 - 100 mg PO Q4H PRN pain #15 12/28/19 Rx tabs Patient History Medical History Chronic back pain Degenerative disc disease GERD (gastroesophageal reflux disease) Hyperlipidemia Hypertension Osteoarthritis Surgical History Fusion of spine 1995 L3-4 Fusion of spine FUSION OF C 5,6,7> ROM IS WNL PER PATIENT History of bilateral tubal ligation History of cataract surgery RIGHT History of colonoscopy History of hysterectomy GUTIERREZ W/ BSO History of repair of rotator cuff BILATERAL History of tonsillectomy History of total knee replacement BILATERAL Family History Mother Family history of diabetes mellitus Other No family history of adverse response to anesthesia Social History Smoking Status: Never smoker Second Hand Exposure: No; Hx Alcohol Use: No Hx Substance Use: No Preferred Language: Maori Communication Ability: Effective 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 HEENT: Unremarkable Neck: No jugular venous distention, carotid pulses are normal and equal bilaterally without bruits. Pulmonary: Clear to auscultation bilaterally. Cardiac: Regular rhythm with no murmur, gallop or rub. Abdomen: Soft, nontender with normal bowel sounds. Extremities: No edema. Distal pulses intact. Neurologic: No focal findings. Gait was not tested. Skin: No rash, ecchymoses or petechiae. Results & Data ([facility]) Vital Signs (Past 12 Hours) Vital Signs Temp Pulse Pulse Resp BP BP Pulse Ox 03/31/22 13:15 95 H 23 175/119 H 98 03/31/22 13:00 98 H 19 163/117 H 94 03/31/22 12:30 96 H 19 149/114 H 99 03/31/22 12:15 94 H 24 162/92 H 98 03/31/22 12:00 97 H 23 159/94 H 99 03/31/22 11:38 95 H 27 H 166/92 H 93 03/31/22 10:45 95 H 21 141/104 H 97 03/31/22 10:30 94 H 25 H 164/95 H 98 03/31/22 10:27 93 H 25 H 153/98 H 96 03/31/22 09:30 97 H 26 H 144/92 H 100 03/31/22 09:15 101 H 25 H 158/91 H 99 03/31/22 09:06 171/93 H 03/31/22 09:36 94 H 20 144/92 H 99 03/31/22 09:02 36.8 C 100 H 22 171/93 H 98 O2 Del Method 03/31/22 13:15 Room Air 03/31/22 13:00 Room Air 03/31/22 12:30 Room Air 03/31/22 12:15 Room Air 03/31/22 12:00 Room Air 03/31/22 11:38 Room Air 03/31/22 10:45 Room Air 03/31/22 10:30 Room Air 03/31/22 10:27 Room Air 03/31/22 09:30 Room Air 03/31/22 09:15 Room Air 03/31/22 09:06 03/31/22 09:36 Room Air 03/31/22 09:02 Room Air Laboratory Results Cardiac Enzymes 03/31/22 Range/Units 08:40 AST 38 (13-39) U/L Troponin I High Sens 34.9 H (0-14) pg/ml CBC 03/31/22 Range/Units 08:40 WBC 10.22 (4.8-10.8) K/ul RBC 4.89 (3.93-5.22) M/uL Hgb 14.7 (12.0-16.0) g/dl Hct 43.1 (34.1-44.9) % Plt Count 366 (130-400) K/uL Neut # (Auto) 5.00 (1.4-6.5) K/uL Lymph # (Auto) 4.19 H (1.2-3.4) K/uL [place] # (Auto) 0.66 (0.24-0.82) K/uL Eos # (Auto) 0.28 (0-0.50) K/uL Baso # (Auto) 0.06 (0-0.2) K/uL Comprehensive Metabolic Panel 03/31/22 Range/Units 08:40 Sodium 138 (136-145) mmol/L Potassium 3.7 (3.5-5.1) mmol/L Chloride 102 (98-107) mmol/L Carbon Dioxide 29 (21-32) mmol/L BUN 14 (6-23) mg/dl Creatinine 0.67 (0.6-1.2) mg/dl Glucose 96 (70-99(Fasting)) mg/dl Calcium 10.0 (8.5-10.1) mg/dl AST 38 (13-39) U/L ALT 61 H (7-52) U/L Alkaline Phosphatase 175 H (34-104) U/L Total Protein 7.5 (6.0-8.3) gm/dl Albumin 4.4 (3.4-5.0) gm/dl Intake and Output 03/30/22 03/31/22 03/31/22 22:59 06:59 14:59 Other: Weight 90.5 kg Weight Measurement Method Built in [facility] Patient Weight 04/01/22 06:59 Weight 90.5 kg Diagnostic Findings Telemetry: Sinus rhythm, PVCs. PG Care Time/CCT Total # of Minutes Spent Total Time Spent with Patient: Total time spent is greater than 50% in coordination of care (as documented) at patient's floor/unit and/or counseling patient: Coding Level of Care Code 55042 Inpt Consult Level 5 Diagnoses Chest pain R07.2 Chest pain type: precordial pain Hyperlipidemia E78.5 Hyperlipidemia type: unspecified Dye allergic reaction T50.995A HTN (hypertension) I10 (1) Chest pain Chest pain type: precordial pain Qualified Code(s): R07.2 - Precordial pain (2) Hyperlipidemia Hyperlipidemia type: unspecified Qualified Code(s): E78.5 - Hyperlipidemia, unspecified
[2022-03-31] MEDS ORDERED: MIDAZOLAM HCL 1 MG/ML 2ML VIAL ONE (14:18)
[2022-03-31] MEDS ORDERED: HEPARIN (PORCINE) 1000 UNIT/ML 10 ML (CATH LAB USE ONLY) ONE (14:18)
[2022-03-31] MEDS ORDERED: fentaNYL citrate 100 MCG/2 ML VIAL ONE (14:18)
[2022-03-31] MEDS ORDERED: niCARdipine HCL INJ 2.5 MG/ML 10 ML AMP ONE (14:18)
[2022-03-31] MEDS ORDERED: NITROGLYCERIN/D5W 100MCG/ML 20ML SYR ONE (14:18)
--- NOTE | 2022-03-31 14:24 | Pre Anesthesia Assessment ---
Date of Service March 31, 2022 Pre Sedation Assessment Vital Signs Temp Pulse Pulse Resp BP BP Pulse Ox 03/31/22 13:15 95 H 23 175/119 H 98 03/31/22 13:00 98 H 19 163/117 H 94 03/31/22 12:30 96 H 19 149/114 H 99 03/31/22 12:15 94 H 24 162/92 H 98 03/31/22 12:00 97 H 23 159/94 H 99 03/31/22 11:38 95 H 27 H 166/92 H 93 03/31/22 10:45 95 H 21 141/104 H 97 03/31/22 10:30 94 H 25 H 164/95 H 98 03/31/22 10:27 93 H 25 H 153/98 H 96 03/31/22 09:30 97 H 26 H 144/92 H 100 03/31/22 09:15 101 H 25 H 158/91 H 99 03/31/22 09:06 171/93 H 03/31/22 09:36 94 H 20 144/92 H 99 03/31/22 09:02 36.8 C 100 H 22 171/93 H 98 O2 Del Method 03/31/22 13:15 Room Air 03/31/22 13:00 Room Air 03/31/22 12:30 Room Air 03/31/22 12:15 Room Air 03/31/22 12:00 Room Air 03/31/22 11:38 Room Air 03/31/22 10:45 Room Air 03/31/22 10:30 Room Air 03/31/22 10:27 Room Air 03/31/22 09:30 Room Air 03/31/22 09:15 Room Air 03/31/22 09:06 03/31/22 09:36 Room Air 03/31/22 09:02 Room Air Cardiovascular RRR, no murmur, no edema (occasional premature beat) Pre-Sedation Airway Assessment Smoking Status: Never smoker Hx Sleep Apnea: No Short, Thick Neck: No Thyromental Distance: > or= 3.5 Finger Breadths Oral Cavity: + WNL Mallampati Class: II ASA: ASA3 NPO Status Date of Last Intake of Fluids: 03/30/22 Date of Last Intake of Solid Food: 03/30/22 Notes The planned sedation has been discussed with the patient. Informed Consent was obtained. I have identified the patient, determined the appropriateness of sedation and have assessed the patient immediately prior to the procedure. All medicine(s) and interventions are by my order.
[2022-03-31] MEDS ORDERED: diphenhydrAMINE 50 MG/ML VIAL ONE (14:44)
[2022-03-31] MEDS ORDERED: FAMOTIDINE 20MG/5ML IV PUSH IV ONE (14:44)
[2022-03-31] MEDS ORDERED: methylPREDNISolone 125 MG/2 ML VIAL ONE (14:44)
[2022-03-31] MEDS ORDERED: ADENOSINE IV SOLN 3 MG/ML 20 ML VIAL IV ONE (14:57)
--- NOTE | 2022-03-31 15:44 | Post Anesthesia Assessment ---
Date of Service March 31, 2022 Post Sedation Assessment Vital Signs Temp Pulse Pulse Resp BP BP Pulse Ox 03/31/22 15:32 80 16 158/92 H 98 03/31/22 14:00 99 H 20 157/93 H 96 03/31/22 13:46 99 H 23 160/100 H 96 03/31/22 13:30 102 H 24 134/89 96 03/31/22 13:15 95 H 23 175/119 H 98 03/31/22 13:00 98 H 19 163/117 H 94 03/31/22 12:30 96 H 19 149/114 H 99 03/31/22 12:15 94 H 24 162/92 H 98 03/31/22 12:00 97 H 23 159/94 H 99 03/31/22 11:38 95 H 27 H 166/92 H 93 03/31/22 10:45 95 H 21 141/104 H 97 03/31/22 10:30 94 H 25 H 164/95 H 98 03/31/22 10:27 93 H 25 H 153/98 H 96 03/31/22 09:30 97 H 26 H 144/92 H 100 03/31/22 09:15 101 H 25 H 158/91 H 99 03/31/22 09:06 171/93 H 03/31/22 09:36 94 H 20 144/92 H 99 03/31/22 09:02 36.8 C 100 H 22 171/93 H 98 O2 Del Method 03/31/22 15:32 Room Air 03/31/22 14:00 Room Air 03/31/22 13:46 Room Air 03/31/22 13:30 Room Air 03/31/22 13:15 Room Air 03/31/22 13:00 Room Air 03/31/22 12:30 Room Air 03/31/22 12:15 Room Air 03/31/22 12:00 Room Air 03/31/22 11:38 Room Air 03/31/22 10:45 Room Air 03/31/22 10:30 Room Air 03/31/22 10:27 Room Air 03/31/22 09:30 Room Air 03/31/22 09:15 Room Air 03/31/22 09:06 03/31/22 09:36 Room Air 03/31/22 09:02 Room Air Recovery Score Activity: Moves 4 extremities Respiration: Deep Breath/Cough Circulation: +/-20% PreAnes Value Consciousness: Fully Awake Oxygen Saturation: > 92% On Room Air Post Anesthesia Score: 10 Discharge Sedation Level of Care: Phase I Post Sedation Plan On clinical assessment, the patient appears to have tolerated the sedation without complications. Patient is recovering as anticipated. Patient will continue to be monitored by nursing and may be discharged when sedation discharge criteria are met per below protocol. Upon Completions of procedure up to 15 minutes continue every 5 minute vital signs and the P.A.R. score; then discharge to a Phase I or Fast Track to Phase II per the following guidelines: * Discharge Patient to appropriate Phase II area if PAR is 8 or greater or return to pre- procedure baseline. The post - procedure orders will be as directed. * If PAR score is less than 8 or not return to pre-procedure baseline then p atient will follow Phase I monitoring till PAR is reached for Phase II. The Phase I may be done in procedure room or may call to secure a Phase I area. * If naloxone or flumazenil are used for reversal, hold in Phase I for continued monitoring from when last reversal dose was given for a minimum of 60 minutes or longer pending the nurse and/or physician discretion of patient condition before discharge to Phase II. Please call the Sedation Physician to re-evaluate and complete post-note for discharge to Phase II area. Do NOT discharge from procedure sedation or Phase 1 until post- sedation evaluation note is complete by procedure /sedation MD Sedation Discharge Instructions to be given to the patient at discharge to home.
[2022-03-31] MEDS ORDERED: ACETAMINOPHEN 325 MG TAB PO PRN (15:50)
--- NOTE | 2022-03-31 15:53 | Cardiac Catheterization ---
[facility] Data: Station Examiner Cardiac Status Clinical evaluation leading to the procedure CAD Presenation: Non STEMI Anginal Classification: CCS IV Heart Failure: No Cardiogenic Shock within 24 Hours: No Cardiac Arrest within 24 Hours: No Imaging Studies Past 6 Months: No Stress Studies Past 6 Months: No STEMI OR Non-STEMI Symptom Onset Date: 03/31/22 Coronary Anatomy Left Main (% Stenosis): Normal LAD (% Stenosis): Mid (40 to 50%) and Distal (60 to 70%) D1 (% Stenosis): Normal D2 (% Stenosis): Normal Circumflex (% Stenosis): Normal (Mild diffuse) OM1 (% Stenosis): Normal L PL1 (% Stenosis): Normal RCA (% Stenosis): Normal (Mild luminal irregularities) R PDA (% Stenosis): Normal R PL1 (% Stenosis): Normal Diagnostic Physicians Name: Arie Gonzales MD, PhD Closure Device Recommendations: Medical Therapy and/or Counseling (Initiate guideline directed medical therapy for secondary prevention of coronary disease as well as antianginal regimen including long-acting nitrate.) Lesion Segment Name: Combined mid and distal LAD Culprit Artery: Yes Stenosis Prior to Rx (%): 40 to 50%, 50 to 70% respectively FFR: Yes (0.81) Pre-Procedure LILIYA Flow: 3 Previously Treated Lesion: No Lesion Complexity: Non-High/Non-C Lesion Length (mm): 8 to 10 mm Thrombus Present: No Bifurcation Lesion: No Guidewire Across Lesion: Yes Cardiac Cath Procedure Full Procedure Date March 31, 2022 Pre-Procedure Diagnosis Pre-Procedure Diagnosis: Non STEMI AUC Score AUC Score: 07 Post-Procedure Diagnosis Post-Procedure Diagnosis: Severe CAD Procedure(s) Performed Procedure(s) Performed: Coronary Angiography and Fractional Flow Ethel (LAD) [employer] Work[employer] Arie Gonzales MD, PhD Estimated Blood Loss Estimated Blood Loss: 20 ml Medication(s) Medication(s): heparin, adenosine Summary of Findings Brief description: Patient was brought to the cardiac catheterization suite where she was shaved and prepped in a sterile fashion. Sedated using IV Versed and fentanyl. Soft tissues of the right wrist were anesthetized using 2 mL of 1% Xylocaine. The right radial artery was accessed with a modified Seldinger technique and a 6 Uzbek radial artery glide sheath was placed. Patient was provided anticoagulation with IV heparin and antispasmodics including verapamil and nitroglycerin. In addition, she was pretty sedated for her IVP contrast allergy with Solu-Medrol, Pepcid, and Benadryl. All catheters were advanced and exchanged over a 0.035 J-tip wire. Left coronary angiography in orthogonal views with a 5 Uzbek JL 3.5 diagnostic catheter. Right coronary angiography in orthogonal views with a 5 Uzbek JR4 diagnostic catheter. We next moved to FFR analysis of the LAD. Patient was provided additional IV heparin as needed to maintain therapeutic ACT. FFR was performed using a 6 Uzbek JL 4 guide catheter and a BMW universal guidewire. The wire was advanced beyond the lesion in the LAD. Over this, the assist FFR catheter was advanced and positioned just distal to the guide catheter tip. Pressures were equalized. Catheter was then advanced beyond the lesion in the LAD. Adenosine was then infused at 140 mcg/kg/min for 3 minutes. Peak FFR was recorded and continuous FFR was performed. The FFR catheter and the BMW universal guidewire were then removed. Final angiographic evaluation was performed. The guide catheter was then removed over the J-wire. Radial artery sheath was removed. Hemostasis obtained using a TR band. Patient was hemodynamically stable and asymptomatic. She was returned to the recovery area. This ended the case. Findings: Left main trunk: Large caliber and relatively short. Mild luminal irregularities noted. LAD: Large caliber and transapical. Becomes tortuous distally. The proximal segment has diffuse mild disease. It gives a medium to large caliber first diagonal which has mild luminal irregularities. The mid segment then has a focal 40% stenosis. The early distal LAD has a tubular eccentric stenosis appearing 60 to 70% stenosed. After this, the distal LAD becomes very tortuous. There is a small diagonal arising just after the tubular lesion and this has mild luminal irregularities. Circumflex: Large caliber and nondominant. Travels in the AV groove where there is diffuse mild disease. Provides a large branching and tortuous OM1. This has mild scattered plaques. The AV groove circumflex then becomes medium in caliber and continues to taper as it travels distally terminating in a small caliber tortuous posterior lateral branch. RCA: Large caliber and dominant. Provides a sizable PDA and branching posterior lateral. This has mild scattered plaques. FFR analysis of the tandem LAD lesions: 0.81, therefore, this does not meet hemodynamic criteria for PCI. No evidence of dissection or perforation post FFR analysis LILIYA-3 flow post FFR analysis Hemodynamics Rest Ao:: 149/86 mmHg, mean 110 mmHg Final Ao: 139/75 mmHg, mean 74 mmHg LV: Not performed Recommendations Recommendations: Medical Therapy and/or Counseling (Initiate guideline directed medical therapy for secondary prevention of coronary disease as well as antianginal regimen including long-acting nitrate.) Radiation Exposure (mGy) 2301 mGy, 14.1 minutes fluoroscopy time Contrast (mls) 125 mL Anesthesia 1 mg IV Versed, 50 mcg IV fentanyl, sedation time 39 minutes Procedural Complication(s) None Disposition Recovery Room\PACU I attest to the content of the Intraoperative Record and any orders documented therein. Any exceptions are noted below. [facility] Card Cath Procedure Codes Cardiac Catheterization Procedure 1: Cardiovascular Cath Procedures: 88130 (Doppler) Pressure Wire (LAD) Procedure 2: Cardiovascular Cath Procedures: 55025 Coronaries Moderate Sedation Procedure 1: Sedation/Anesthesia: 12781 Mod Sedation by the same physician;Init15 Min Child Age 5 & Up Procedure 2: Sedation/Anesthesia: 64005 Mod Sedation by the same physician; Ea Ad [id number] Minutes Procedure 3: Sedation/Anesthesia: 55251 Mod Sedation by the same physician; Ea [id number] Minutes PG Care Time/CCT Total # of Minutes Spent Total Time Spent with Patient: Total time spent is greater than 50% in coordination of care (as documented) at patient's floor/unit and/or counseling patient:
[2022-03-31] MEDS: SODIUM CHLORIDE 0.9% 1000ML 1,000 ML IV SCH (16:31)
--- NOTE | 2022-03-31 16:34 | Electrocardiogram Report ---
Test Reason : Blood Pressure : / mmHG Vent. Rate : 096 BPM Atrial Rate : 096 BPM P-R Int : 168 ms QRS Dur : 092 ms QT Int : 372 ms P-R-T Axes : 055 -29 074 degrees QTc Int : 469 ms Sinus rhythm with occasional Premature ventricular complexes Possible Left atrial enlargement Incomplete right bundle branch block Possible Anterolateral infarct , age undetermined Abnormal ECG When compared with ECG of 15-NOV-2015 10:43, Premature ventricular complexes are now Present Borderline criteria for Anterolateral infarct are now Present Confirmed by Иван Jade ([id number]) on 03/31/2022 4:33:40 PM Referred By: REFERRED SELF Confirmed By:Иван Jade
[2022-03-31] MEDS ORDERED: NITROGLYCERIN SL 0.4 MG/TAB TAB SL PRN (16:39)
[2022-03-31] MEDS ORDERED: NITROGLYCERIN SL 0.4 MG/TAB TAB ONE (16:39)
[2022-03-31] MEDS: ATORVASTATIN 40 MG TAB PO SCH (17:16)
[2022-03-31] MEDS: ISOSORBIDE MONO EXTENDED REL 30 MG TABCR PO SCH (17:16)
[2022-03-31] MEDS: METOPROLOL TARTRATE 25 MG TAB PO SCH (20:26)
[2022-03-31] MEDS: NORTRIPTYLINE HCL 25 MG CAP PO SCH (20:26)
[2022-03-31] MEDS: POLYETHYLENE (MIRALAX) 17 GM PACK PO SCH (20:26)
[2022-04-01] MEDS: traMADol HCL 50 MG TABLET PO PRN ×3 (03:08→21:38)
[2022-04-01 03:31] LABS: Hematocrit (blood only) 39.4 % (34.1-44.9); Hemoglobin 13.9 g/dl (12.0-16.0); Mean Corpuscular Hemoglobin 31.1 pg (25.0-34.0); Mean Corpuscular Hgb Conc 35.3 g/dL (32.0-36.0); Mean Corpuscular Volume 88.1 fL (80.0-100.0); Mean Platelet Volume 9.7 fL (9.4-12.3); Platelet Count 378 K/uL (130-400); RDW Coefficient of Variation 13.4 % (11.5-14.5); RDW Standard Deviation 43.6 fL (36.4-46.3); Red Blood Count 4.47 M/uL (3.93-5.22)
[2022-04-01 03:57] LABS: BUN Creatinine Ratio 27.4 (10-20); Calcium 9.5 mg/dl (8.5-10.1); Creatinine Clr Calc Pharmacy 60.2 ml/min; Est GFR (African American) 79.4 ml/min; Est GFR (Non-African American) 68.5 ml/min; Potassium 3.9 mmol/L (3.5-5.1)
[2022-04-01] MEDS: SODIUM CHLORIDE 0.9% 1000ML 1,000 ML IV SCH ×2 (05:45→18:31)
[2022-04-01] MEDS: PANTOprazole 40 MG TAB PO SCH (08:42)
[2022-04-01] MEDS: CALCIUM 600MG + VIT D 400 IU TAB PO SCH (08:42)
[2022-04-01] MEDS: lisinopril 20 MG TAB PO SCH (08:42)
[2022-04-01] MEDS: ATORVASTATIN 40 MG TAB PO SCH (08:42)
[2022-04-01] MEDS: ISOSORBIDE MONO EXTENDED REL 30 MG TABCR PO SCH (08:42)
[2022-04-01] MEDS: POLYETHYLENE (MIRALAX) 17 GM PACK PO SCH (08:42)
[2022-04-01] MEDS: ASPIRIN 81 MG ECTAB PO SCH (08:42)
[2022-04-01] MEDS: MAGNESIUM OXIDE 400 MG TAB PO SCH (08:42)
[2022-04-01] MEDS: METOPROLOL TARTRATE 25 MG TAB PO SCH ×2 (08:42→19:35)
[2022-04-01] MEDS ORDERED: NON-FORMULARY MEDICATION (Coenzyme Q10 [Coq-10] 100 mg Capsule) PO SCH (09:00)
[2022-04-01] MEDS: ACETAMINOPHEN 325 MG TAB PO PRN ×3 (09:02→21:38)
--- NOTE | 2022-04-01 10:31 | Cardiology Progress Note ---
Date of Service April 01, 2022 Assessment & Plan (1) Elevated troponin: Plan: Non-ST elevation WA likely secondary to a combination of angiographically borderline and hemodynamically borderline LAD stenosis plus hypertension. Responded favorably to long-acting nitrate for anginal relief. Is also significantly improved her blood pressure and she is now asymptomatic. We will continue optimized medical therapy for secondary prevention of coronary disease including low-dose aspirin, high intensity statin, metoprolol tartrate, and lisinopril. Isosorbide mononitrate for anginal relief. (2) HTN (hypertension): Plan: Blood pressure is now improved. Continue metoprolol tartrate 25 mg p.o. twice daily, lisinopril 20 mg p.o. daily, and isosorbide mononitrate 30 mg p.o. daily. (3) Hyperlipidemia: Plan: High risk. High intensity statin therapy is recommended by current guidelines. Aggressive LDL reduction using a atorvastatin 40 mg p.o. daily. Plan At this time, we are using medical management for her borderline coronary disease which does not meet criteria for PCI at this time. Antianginal regimen includes isosorbide mononitrate and metoprolol tartrate. In addition, blood pressure control likely improves anginal control and she should continue on her current regimen without change. I will see the patient in cardiology clinic within the next 2 to 4 weeks. If she has recurrent angina despite medical therapy then she will contact the office and I will likely plan for PCI of the LAD. She is appropriate for discharge at this time from a cardiac standpoint. Admission and Anticipated Discharge Date Admission Date: March 31, 2022 Subjective Patient doing well at this time. Reports complete resolution of her anginal chest pain after receiving her medications including long-acting nitrate. She denies any shortness of breath, pain at the cardiac access site, palpitations, or edema. No headache from the nitroglycerin. Physical Exam Constitutional: WD/WN, vitals as above Neck: trachea midline, no thyromegaly (No JVD) Respiratory: normal respiratory effort, lungs clear to auscultation Cardiovascular: Regular rate and rhythm Gastrointestinal (Abdomen): NABS Musculoskeletal: Right radial access site is clean dry and intact. No mass or ecchymosis. Good distal perfusion. Neurologic: Cognition intact. Speech is fluent. No deficits. No tremor. Psychiatric: A+Ox3, euthymic affect Results & Data ([facility]) Vital Signs (Past 12 Hours) Vital Signs Temp Pulse Pulse Pulse Resp BP BP 04/01/22 08:00 04/01/22 08:04 36.5 C 79 17 113/68 04/01/22 04:01 36.6 C 75 18 116/62 03/31/22 23:30 36.6 C 76 20 113/66 03/31/22 23:17 74 Pulse Ox O2 Del Method 04/01/22 08:00 Room Air 04/01/22 08:04 98 Room Air 04/01/22 04:01 95 Room Air 03/31/22 23:30 95 Room Air 03/31/22 23:17 PG Care Time/CCT Total # of Minutes Spent Total Time Spent with Patient: Total time spent is greater than 50% in coordination of care (as documented) at patient's floor/unit and/or counseling patient: Coding [place] [address] Subseq Hosp Care Lvl 2 Patient Type Established Diagnoses Elevated troponin R77.8 HTN (hypertension) I10 Hyperlipidemia E78.5 Hyperlipidemia type: unspecified (1) Hyperlipidemia Hyperlipidemia type: unspecified Qualified Code(s): E78.5 - Hyperlipidemia, unspecified
[2022-04-01] MEDS ORDERED: MoRPHine SULFATE 2 MG/ML CARP IV PRN (11:30)
--- NOTE | 2022-04-01 12:02 | Electrocardiogram Report ---
Test Reason : Blood Pressure : / mmHG Vent. Rate : 105 BPM Atrial Rate : 105 BPM P-R Int : 164 ms QRS Dur : 092 ms QT Int : 342 ms P-R-T Axes : 052 -35 071 degrees QTc Int : 452 ms Poor data quality, interpretation may be adversely affected Sinus tachycardia with occasional Premature ventricular complexes Left axis deviation Inferior infarct , age undetermined Cannot rule out Anterior infarct (cited on or before 31-MAR-2022) Abnormal ECG When compared with ECG of 31-MAR-2022 09:00, Inferior infarct is now Present Confirmed by Иван Jade ([id number]) on 04/01/2022 12:02:00 PM Referred By: REFERRED SELF Confirmed By:Иван Jade
[2022-04-01] MEDS ORDERED: TICAGRELOR 90 MG TAB PO ONE (12:30)
[2022-04-01] MEDS ORDERED: niCARdipine HCL INJ 2.5 MG/ML 10 ML AMP ONE (14:43)
[2022-04-01] MEDS ORDERED: HEPARIN (PORCINE) 1000 UNIT/ML 10 ML (CATH LAB USE ONLY) ONE (14:43)
[2022-04-01] MEDS ORDERED: MIDAZOLAM HCL 1 MG/ML 2ML VIAL ONE (14:44)
[2022-04-01] MEDS ORDERED: fentaNYL citrate 100 MCG/2 ML VIAL ONE ×2 (14:44→15:22)
[2022-04-01] MEDS ORDERED: NITROGLYCERIN/D5W 100MCG/ML 20ML SYR ONE (14:44)
[2022-04-01] MEDS ORDERED: methylPREDNISolone 125 MG/2 ML VIAL ONE (14:59)
[2022-04-01] MEDS ORDERED: diphenhydrAMINE 50 MG/ML VIAL ONE (14:59)
[2022-04-01] MEDS ORDERED: FAMOTIDINE 20MG/5ML IV PUSH IV ONE (15:00)
--- NOTE | 2022-04-01 15:53 | Cardiac Catheterization ---
[facility] Data: District Administrative Assistant Cardiac Status Clinical evaluation leading to the procedure CAD Presenation: Non STEMI (Refractory chest pain to optimize medical therapy) Anginal Classification: CCS III Heart Failure: No Cardiogenic Shock within 24 Hours: No Cardiac Arrest within 24 Hours: No Imaging Studies Past 6 Months: Yes (Cath plus FFR. Borderline angio/hemodynamic.) Coronary Anatomy LAD (% Stenosis): Proximal (40 to 50%) and Distal (70 to 80%) D1 (% Stenosis): Normal D2 (% Stenosis): Normal Diagnostic Physicians Name: Arie Gonzales MD, PhD Closure Device Recommendations: Medical Therapy and/or Counseling and PCI without planned CABG PCI Indication: PCI for high risk Non-BRADY Lesion Segment Name: Distal LAD Culprit Artery: Yes Stenosis Prior to Rx (%): 70 to 80% Chronic Total Occlusion: No Pre-Procedure LILIYA Flow: 2 (2.5) Previously Treated Lesion: No Lesion Complexity: Non-High/Non-C Lesion Length (mm): 10 mm Thrombus Present: No Guidewire Across Lesion: Yes Intraprocedure Events Significant Disection: No Perforation: No Cardiac Cath Procedure Full Procedure Date April 01, 2022 Pre-Procedure Diagnosis Pre-Procedure Diagnosis: Non STEMI AUC Score AUC Score: 07 Post-Procedure Diagnosis Post-Procedure Diagnosis: Severe CAD Procedure(s) Performed Procedure(s) Performed: Coronary Angiography, Drug Eluting Stent and Ultrasound Guided Vascular Access Tar Worker Arie Gonzales MD, PhD Estimated Blood Loss Estimated Blood Loss: 20 ml Medication(s) Medication(s): Fentanyl, Heparin, Nicardipine, Nitroglycerin and Versed Medication(s): Heparin Summary of Findings Patient was brought to the cardiac catheterization suite where she was shaved and prepped in a sterile fashion. Sedated using IV Versed and fentanyl. Soft tissues of the right groin were anesthetized using 10 mL of 1% Xylocaine. Using the ultrasound for guidance (image saved) the right femoral artery was accessed and a 6 [place] femoral artery sheath was placed. All catheters were advanced and exchanged over a 0.035 J-tip wire. Left coronary angiography was performed in orthogonal views with a 6 [place] EBU 3.5 guide catheter. We then proceeded with PCI of the LAD. Patient was provided 6500 units of IV heparin and had been loaded with both aspirin and Brilinta prior to the procedure. ACT was checked intermittently as needed to maintain therapeutic ACT. A BMW universal guidewire was advanced beyond the lesion in the LAD. Over this, a 2.5 x 12 mm PTCA balloon was advanced and inflated to 10 aba. The balloon was removed and monomer purification operator angiography was performed. Then, an Angelo 2.5 x 15 mm drug-eluting stent was advanced and positioned across the lesion. This was then deployed at 10 aba. The balloon was deflated and removed. Groundwater Monitoring Technician angiography was performed. The guidewire was removed and final angiographic evaluation was performed. Guide catheter was then removed from the patient over the J-wire. Limited right femoral artery angiography was performed to evaluate for closure. Findings were favorable, therefore, the femoral artery sheath was exchanged for a 6 [place]an Angio-Seal closure device. This was deployed in the recommended fashion. Patient remained hemodynamically stable and without chest pain. She was therefore returned to the recovery area. This ended the case. Findings: Left main trunk: Unchanged from yesterday. LAD: Proximal 40 to 50% stenosis. Early distal stenosis actually appeared worse today at 70% stenosis. LILIYA 2.5 flow after the stenosis. PCI of distal LAD: 0% residual stenosis post PCI LILIYA-3 flow post PCI No evidence of dissection or perforation post PCI Hemodynamics Rest Ao:: 1 1 7/69 mmHg, mean 89 mmHg Final Ao: Not recorded LV: Not performed Recommendations Recommendations: Medical Therapy and/or Counseling and PCI without planned CABG Radiation Exposure (mGy) 433 mGy, 4.0 minutes fluoroscopy time Contrast (mls) 40 mL Anesthesia 1 mg IV Versed, 25 mcg fentanyl, sedation time 17 minutes Procedural Complication(s) None None Disposition Recovery Room\PACU I attest to the content of the Intraoperative Record and any orders documented therein. Any exceptions are noted below. [facility] Card Cath Procedure Codes Therapeutic Services & Ancillary Procedure 1: Cardiovascular Tx and Anc Procedures: 18706 Ultrasonic Guidance Vascular Access Moderate Sedation Procedure 1: Sedation/Anesthesia: 16272 Mod Sedation by the same physician;Init15 Min Child Age 5 & Up Stenting Procedure 1: Cardiovascular Stent Procedures: 21317 Perc transcatheter placement of intracoronary stent(s), with ang (LAD) PG Care Time/CCT Total # of Minutes Spent Total Time Spent with Patient: Total time spent is greater than 50% in coordination of care (as documented) at patient's floor/unit and/or counseling patient:
--- NOTE | 2022-04-01 16:03 | Electrocardiogram Report ---
Test Reason : Blood Pressure : / mmHG Vent. Rate : 077 BPM Atrial Rate : 077 BPM P-R Int : 156 ms QRS Dur : 094 ms QT Int : 446 ms P-R-T Axes : 058 -24 126 degrees QTc Int : 504 ms Sinus rhythm with Premature atrial complexes with Aberrant conduction Prolonged QT Abnormal ECG When compared with ECG of 31-MAR-2022 16:13, Premature ventricular complexes are no longer Present Aberrant conduction is now Present T wave inversion now evident in Anterolateral leads QT has lengthened Confirmed by Иван Jade ([id number]) on 04/01/2022 4:03:33 PM Referred By: REFERRED SELF Confirmed By:Иван Jade
--- NOTE | 2022-04-01 16:55 | Hospitalist Progress Note ---
Date of Service April 01, 2022 Assessment & Plan (1) Chest pain: Plan: 76 y/o F here with exertional chest pain Acute coronary syndrome/CAD -[facility] on 03/31 with 70% distal stenosis. Didn't meet criteria to place stent. Planned to have med mx with BP control and addition of imdur. Chest pain better but during process of discharge - developed chest pain with exertion with ST depressions. -Repeat [facility] 04/01 with MANDO placement. -continue b colton, atorvastatin 40mgs, lisinopril, aspirin, ticagrelor, imdur HTN (hypertension): -controlled. will need med adjustment to home regimen with addition of b colton and imdur. Elevated LFTs: -Patient states that she was recently diagnosed with cholangitis at [place] >Had outpatient ERCP in October 2021 and received biliary stent. No stones or concern of infection >Alk phos noted to be 175 with ALT of 61, no abdominal pain, nausea, vomiting, or fevers. >recheck labs in am to confirm stability. Hyperlipidemia: -Continue STEAM CLEANER statin - increased dose. GERD (gastroesophageal reflux disease): -STEAM CLEANER omeprazole - protonix. Full code On double antiplatelet for ACS. Heart healthy diet. #35 min of critical care time spent. (2) HTN (hypertension): (3) Elevated LFTs: (4) Hyperlipidemia: (5) GERD (gastroesophageal reflux disease): Admission and Anticipated Discharge Date Admission Date: March 31, 2022 Subjective seen this am - pain had resolved. no shortness of breath. later seen again after she had chest pain from ambulation, no shortness of breath, no palpitation - -EKG done with ST depression in anterior leads. NTG given. systolic blood pressure drop. decided to hold third dose of ntg. pain slowly improved. -family was at bedside. -in communication with nursing and cardio - planned to do repeat [facility] Physical Exam Constitutional: WD/WN, vitals as above Respiratory: normal respiratory effort, lungs clear to auscultation Cardiovascular: RRR, no murmur, no edema Psychiatric: A+Ox3, euthymic affect Results & Data Results & Data ([facility]) Vital Signs (Past 12 Hours) Vital Signs Temp Pulse Pulse Resp BP BP Pulse Ox 04/01/22 16:30 36.5 C 86 20 120/74 97 04/01/22 16:15 83 18 116/68 98 04/01/22 16:00 36.4 C L 70 18 122/72 98 04/01/22 15:44 75 20 124/65 96 04/01/22 15:30 78 20 115/68 96 04/01/22 14:19 83 18 134/74 98 04/01/22 12:05 37.3 C 76 14 82/40 L 97 04/01/22 08:00 04/01/22 08:04 36.5 C 79 17 113/68 98 O2 Del Method O2 Flow Rate 04/01/22 16:30 Room Air 04/01/22 16:15 Room Air 04/01/22 16:00 Room Air 04/01/22 15:44 Room Air 04/01/22 15:30 Room Air 04/01/22 14:19 Room Air 04/01/22 12:05 Nasal Cannula 2 04/01/22 08:00 Room Air 04/01/22 08:04 Room Air (1) Chest pain Chest pain type: precordial pain Qualified Code(s): R07.2 - Precordial pain (2) Hyperlipidemia Hyperlipidemia type: unspecified Qualified Code(s): E78.5 - Hyperlipidemia, unspecified
[2022-04-01] MEDS: NORTRIPTYLINE HCL 25 MG CAP PO SCH (19:36)
[2022-04-02 06:44] LABS: Basophils # (auto) 0.02 K/uL (0-0.2); Basophils % (auto) 0.1 %; Hematocrit (blood only) 38.5 % (34.1-44.9); Hemoglobin 13.2 g/dl (12.0-16.0); Immature Granulocytes # (auto) 0.07 K/uL (0.00-0.02); Immature Granulocytes % (auto) 0.5 %; Lymphocytes # (auto) 2.86 K/uL (1.2-3.4); Lymphocytes % (auto) 18.5 %; Mean Corpuscular Hemoglobin 30.7 pg (25.0-34.0); Mean Corpuscular Hgb Conc 34.3 g/dL (32.0-36.0); Mean Corpuscular Volume 89.5 fL (80.0-100.0); Mean Platelet Volume 10.3 fL (9.4-12.3); Monocytes # (auto) 0.62 K/uL (0.24-0.82); Neutrophils % (auto) 76.9 %; Platelet Count 355 K/uL (130-400); RDW Standard Deviation 45.4 fL (36.4-46.3); White Blood Count 15.47 K/ul (4.8-10.8)
[2022-04-02 07:08] LABS: BUN Creatinine Ratio 36.1 (10-20); Bilirubin,Total 0.5 mg/dl (0.2-1.0); Calcium 9.4 mg/dl (8.5-10.1); Creatinine Clr Calc Pharmacy 70.2 ml/min; Est GFR (African American) 95.6 ml/min; Est GFR (Non-African American) 82.5 ml/min; Potassium 4.6 mmol/L (3.5-5.1); Total Protein 6.6 gm/dl (6.0-8.3)
[2022-04-02 07:12] LABS: Troponin I High Sensitivity 264.5 pg/ml (0-14)
--- NOTE | 2022-04-02 07:59 | Electrocardiogram Report ---
Test Reason : Blood Pressure : / mmHG Vent. Rate : 084 BPM Atrial Rate : 084 BPM P-R Int : 158 ms QRS Dur : 094 ms QT Int : 482 ms P-R-T Axes : 068 -20 143 degrees QTc Int : 569 ms Sinus rhythm with Premature atrial complexes with Aberrant conduction Prolonged QT Abnormal ECG When compared with ECG of 01-APR-2022 11:13, No significant change Confirmed by Hardy Watts ([id number]) on 04/02/2022 7:59:25 AM Referred By: REFERRED SELF Confirmed By:Hardy Watts
[2022-04-02] MEDS: SODIUM CHLORIDE 0.9% 1000ML 1,000 ML IV SCH (08:38)
[2022-04-02] MEDS: MAGNESIUM OXIDE 400 MG TAB PO SCH (08:46)
[2022-04-02] MEDS: ATORVASTATIN 40 MG TAB PO SCH (08:46)
[2022-04-02] MEDS: lisinopril 20 MG TAB PO SCH (08:46)
[2022-04-02] MEDS: CALCIUM 600MG + VIT D 400 IU TAB PO SCH (08:46)
[2022-04-02] MEDS: ASPIRIN 81 MG ECTAB PO SCH (08:47)
[2022-04-02] MEDS: ISOSORBIDE MONO EXTENDED REL 30 MG TABCR PO SCH (08:47)
[2022-04-02] MEDS: METOPROLOL TARTRATE 25 MG TAB PO SCH (08:48)
[2022-04-02] MEDS: POLYETHYLENE (MIRALAX) 17 GM PACK PO SCH (08:49)
[2022-04-02] MEDS: PANTOprazole 40 MG TAB PO SCH (08:49)
[2022-04-02] MEDS ORDERED: TICAGRELOR 90 MG TAB PO SCH (09:00)
--- NOTE | 2022-04-02 15:17 | Discharge Summary ---
Date of Service April 02, 2022 Admission HPI Per Admitting Provider Dharmesh is a 76yo F hx HTN, HLD, no hx CAD who presents with 3 weeks of increased chest pressure and SoB with exertion and more recently with episodes at rest. Pain is in her chest and radiates into her left neck. She does have associated shortness of breath with episodes. No diaphoresis. Episodes have been happening when walking to the bathroom, and radiate up to her neck. Currently 2-3/10 in her central chest. +SoB with episodes. No diaphoresis. Dnies hx of past cardiac disease including arrythmia, stents. She has never seen a cam milling machine operator. Pain is random, in the center of chest. Not exercise associated, can go up a flight of stairs without inciting it. Pain does wake her up at night from sleep, Pain lasts ~15-20minutes per episode. Rest improves. Having episodes ~2-3 times a day, up from 1 every other day. 10/10 pain this morning. got 4 baby aspirin --> 2/10. Rides stationary bike at home without pain.HTN, HLD, cholangitis no abx. Was at [facility]. Had an ERCP/US/MRI. Liver enzymes elevated at that time. Had a stent placed during ERCP, no stones noted, did not recommend antibiotics, recommended serial followup in 6 months. Had no pain, enzymes were noted FHx: Both parents with triple bipass in 50s, father with 3 brothers all in 50s from MIs. No recent fevers, chills, cough, URI, abdominal pain, dysuria, diarrhea/constipation, bleeding, melena, BRBPR In the ED the patient was noted to be afebrile, hemodynamically stable, and stable on room air. Labs were remarkable for a D-Dimer of 680, alk phos of 175, and high sensitivity troponin of 34.9. Chest xray was negative for acute changes, CTA of the chest was negative for PE, air space consolidation, and pleural effusion but did show coronary artery calcification. EKG showed incomplete RBBB, sinus rhythm with PACS, and borderline criteria for anterior and anterolateral infarcts. Principal Diagnosis NSTEMI Discharge Exam Constitutional WD/WN, vitals as above Respiratory normal respiratory effort, lungs clear to auscultation Cardiovascular RRR, no murmur, no edema Psychiatric A+Ox3, euthymic affect Discharge Data Allergies Allergy/AdvReac Type Severity Reaction Status Date / Time oxycodone Allergy Intermediate Percocet,OX Verified 12/28/19 06:22 YCONTIN-HIV ES,RASH hydrocodone Allergy Unknown hives Verified 12/28/19 06:22 Iodinated Contrast Media Allergy Unknown HIVES, RASH Verified 12/28/19 06:22 nitrofurantoin Allergy Rash Verified 12/28/19 06:22 [From Macrobid] adhesive AdvReac Intermediate HIVES, Verified 12/28/19 06:22 BLISTERS Consultations 03/31/22 12:39 ED Decision to Admit Stat 03/31/22 13:14 Consult Cardiology Routine 04/01/22 15:41 Consult Cardiac Rehabilitation Routine Procedures Performed Operation Date: 03/31/22 14:00 Actual Procedures s Cineradiography w/Routine Exam - Arie Gonzales MD, PhD p Cath, Coronaries ONLY (no LV) - Arie Gonzales MD, PhD p Fraction Flow [place] SGL Ves - Arie Gonzales MD, PhD Operation Date: 04/01/22 14:30 Actual Procedures p Cineradiography w/Routine Exam - Arie Gonzales MD, PhD s Ultrasound Vascular Access - Arie Gonzales MD, PhD s Drug Eluting Stent SGl Vessel - Arie Gonzales MD, PhD s Placement Art Occlusive Device - rAie Gonzales MD, PhD Ordered Studies 03/31/22 11:06 CT angio chest PE protocol Stat 03/31/22 14:25 CL Cath Imgs for PACS use only Stat 04/01/22 14:17 CL Cath Imgs for PACS use only Stat Hospital Course (1) Chest pain: 76 y/o F here with exertional chest pain NSTEMI Noted to have elevation of troponin and ST depression on EKG -[facility] on 03/31 with 70% distal stenosis. Didn't meet criteria to place stent. Planned to have med mx with BP control and addition of imdur. Chest pain better but during process of discharge - developed chest pain with exertion with ST depressions. -Repeat [facility] 04/01 with MANDO placement. -Home on b colton, atorvastatin 40mgs, lisinopril, aspirin, ticagrelor, imdur -Outpatient cardio f/u in 2 wks. Prolonged QTc -Discussed with cardiology - likely sec to myocardial ischemia -normal electrolytes. -no arrhythmias on Tele. -cardiology to follow up on it as outpatient HTN (hypertension): -controlled. continue lisinopril at 20mgs. d/c other lisinopril dose with hctz. added b colton and imdur for CAD. BP controlled. Elevated LFTs: -Patient states that she was recently diagnosed with cholangitis at [place] >Had outpatient ERCP in October 2021 and received biliary stent. No stones or concern of infection >Alk phos noted to be 175 with ALT of 61, no abdominal pain, nausea, vomiting, or fevers. >recheck with normal transaminases. >likely from fatty liver ds Hyperlipidemia: -Continue SENIOR IT SPECIALIST statin - increased dose to atorvastatin 40mgs. GERD (gastroesophageal reflux disease): -SENIOR IT SPECIALIST omeprazole. Full code Heart healthy diet. (2) HTN (hypertension): (3) Elevated LFTs: (4) Hyperlipidemia: (5) GERD (gastroesophageal reflux disease): Total Time Total Time Spent Total Time Spent (In Minutes): 35 Discharge Plan Discharge Items Patient Disposition: Home - Self-Care Reason For Visit: CHEST PAIN Discharge Diagnosis: NSTEMI s/p [facility] and Drug eluding stent placement Activity: Resume your previous activity Non-emergency contact: Primary Care Provider and Machine Shop Lead Man Call non-emergency contact if: you have any medication questions, your symptoms worsen and your pain is not controlled Follow-up/Referrals: Ivana Sandoval MD [Primary Care Provider] - Diet: Heart Healthy and Low Sodium (2gm) Addtl Attending Provider Instructions: You were admitted for having chest pain and noted to have elevated heart enzyme in your blood. Heart catheterization was done with placement of drug eluding stent in the distal part of LAD artery. Your chest pain has improved. You have been started on multiple new medications which you will continue on discharge - Metoprolol Brillinta Aspirin (baby) Imdur (isosorbide nitrate) Dose of atorvastatin has been increased to 40mgs daily. You will only take the lisinopril 20mgs tablet and stop taking the lisinopril/hydrochlorothiazide 20/25mgs. Dr. Gonzales office will call you to set up appointment in 2 wks. Pending Studies at Discharge: No Stand-Alone Forms: My [facility], Smoking Cessation Medications and DC Order Prescriptions: New aspirin 81 mg Tablet,Delayed Release (Dr/Ec) 81 mg PO QAM Qty: 30 0RF metoprolol tartrate 25 mg Tablet 25 mg PO BID Qty: 60 0RF atorvastatin 40 mg Tablet 40 mg PO QAM Qty: 60 0RF Brilinta 90 mg Tablet 90 mg PO BID Qty: 60 0RF isosorbide mononitrate 30 mg Tablet Extended Release 24 Hr 30 mg PO QAM Qty: 30 0RF Continued multivitamin Tablet 1 tab PO QAM Qty: 0 omeprazole 20 mg Capsule,Delayed Release(Dr/Ec) 20 mg PO QAM Qty: 0 polyethylene glycol 3350 [Miralax] 17 gram/dose Powder 1 dose PO QAM Qty: 0 nortriptyline 50 mg Capsule 50 mg PO HS Qty: 0 lisinopril 20 mg Tablet 20 mg PO QAM coenzyme Q10 [CoQ-10] 100 mg Capsule 200 mg PO QAM calcium carbonate-vitamin D3 [Calcium 500 + D] 500 mg(1,250mg) -200 unit Tablet 1 tab PO QAM omega 2-[id number]-fish oil [Fish Oil] 1,000 mg (120 mg-180 mg) Capsule 1 dose PO QAM magnesium oxide 400 mg Capsule 400 mg PO QAM tramadol 50 mg tablet 50 mg PO Q6H PRN (Reason: pain) Qty: 6 0RF Rx Instructions: 1-2 tabs po every 4-6 hours cyclobenzaprine 10 mg Tablet 10 mg PO HS Discontinued atorvastatin 20 mg Tablet 20 mg PO QPM lisinopril-hydrochlorothiazide 20-25 mg Tablet 1 tab PO QAM Discharge Orders: Discharge Order (Routine); Ordered 04/02/22 Ordered By: Ivana Singh/Other Patient Handouts: Cholesterol Lifestyle Changes Admission Data Admit Date/Time: 03/31/22 13:11 Attending Provider: Ivana Sandoval Admit Provider: Osvaldo Marks Primary Care Provider: Ivana Sandoval Other Providers: Patricio Guo ; Hardy Watts ; Eric Hunter ; Arie Gonzales ; Иван Jade ; Manjit James Jr ; Raghavendra Thompson ; Donna Fitzpatrick ; Sandy Rain ; Eleno Escalante ; Mina Reagan ; Julius Sexton ; Nicolette Blevins ; Tiesha Harrington ; Ovidio Rockwell ; Nickolas Alberts ; Js West ; Arie Fontanez V. ; Osvaldo Marks Other Interventions: Discharge Summary Assessment (RN) Last Done: 04/02/22 13:41 Supervising Physician Co-Signing Physician Notes Resident Physician Supervision Note: I independently interviewed and examined the patient and verified the luna history and physical, reviewed labs and image studies and agree with resident findings and care plan.
== END 2022-04-02 14:06 | disposition home or self-care (01) | DRG 247 ==
LOC: ED 08:55 → SUATTDRO 13:11 → OR 14:43 → 2S 14:43
PROC: CLB.CCO (2022-03-31 14:00)